=== PATIENT | male | born 2000 | race Caucasian/White ===

== ENCOUNTER 2025-03-11 15:52 | Inpatient (IN) | payer MEDICAID, SELFPAY ==
[2025-03-11] VITALS (12 sets, daily range): BP systolic 105–184; BP diastolic 54–130; PULSE 81–136; RESP 14–29; TEMP 36.2–38.8; O2SAT 88–100; BMI 12.7
--- NOTE | 2025-03-11 16:01 | XR_ITS ---
Examination: AP chest single view Technique: AP portable supine chest single view. Date and time: March 11, 2025 1608 hrs. Indications: Chest pain today Findings: Severe bilateral lung opacity most consistent with pneumonia Normal heart size No pneumothorax. Intact osseous structures Impression: Severe bilateral pneumonia, differential would include miliary active tuberculosis
--- NOTE | 2025-03-11 16:04 | XR_ITS ---
Examination: Foot, right, 3 views Technique: AP, oblique, lateral views foot, 3 views Date and time of exam: March 11, thousand 25, 1604 hrs. Indications: Swelling and pain involving the foot this week Findings: Air in the soft tissues soft tissue defects medial to the navicular and cuneiforms Multiple soft tissue nodular densities primarily dorsal to the metatarsals and digits but also dorsal to the tarsal bones and about the calcaneus, clinical correlation advised. No opaque foreign bodies Suspicious for cortical bone destruction involving the medial navicular and the medial cuneiform Distal phalanges of the second digit are not evident Impression: Multiple soft tissue nodular densities as above Suspicious for early osteomyelitis involving the medial navicular and medial cuneiform, consider MRI foot without contrast follow-up Distal phalanges of the second digit are not evident and may be displaced adjacent to the proximal phalanx third digit, recommend follow-up coned views of the digits
--- NOTE | 2025-03-11 16:09 | PD.EDAMS ---
Altered Mental Status RME/HPI General Chief Complaint: Altered Mental Status Stated Complaint: ALTERED Time Seen by Provider: 03/11/25 15:56 Arrival date/time: 03/11/25 15:52 RME / HPI RME / HPI narrative: 24 year old male with no known medical history presents to the ED BIBA from home for evaluation of altered mental status, confusion, and lethargy. According to the paramedics, the patient was found with a GCS of 13, lethargic, and altered on arrival. His oxygen saturation was 78% on a non-rebreather mask, which was applied by the fire department. The prehospital blood sugar was 50 and he was given 250 mL of D10. Additionally, the patient?s heart rate was 136 and hypotensive with a blood pressure of 80/49. Started on IV lactated Ringer?s. Upon arrival to the ED, the patient reports a history of mouth sores for over one year. 1655: I spoke with the patient's mother and father, who provided additional medical history. They report that the patient developed mouth sores over a year ago, accompanied by significant weight loss since then. The patient is described as being very withdrawn and rarely communicates about his health issues. According to his mother, he hasn't seen a doctor in over 10 years. There is no history of travel or known IV drug use. Today, the patient visited his mother and mentioned that he was unable to climb the stairs due to weakness and shortness of breath, prompting him to call 911. His mother also noted that he last smoked marijuana two days ago, and he believes this may have worsened his shortness of breath. Related Data Previous Rx's ?Medication ?Instructions ?Recorded Hydrocodone/Acetaminophen * (NORCO 1 tab PO BID PRN PAIN #20 tabs 06/27/15 5/325 *) Allergies Allergy/AdvReac Type Severity Reaction Status Date / Time No Known Allergies Allergy Verified 03/11/25 15:58 Review of Systems Review of Systems Systems Reviewed: All systems reviewed, normal except as documented Past Medical History Past Medical History CARDIAC: Negative Congestive Heart Failure RESPIRATORY: Negative Chronic Obstructive Pulmonary Disease (COPD) GENITOURINARY: Negative Renal Disease ENDOCRINE: Negative Diabetes Mellitus Type 1 or Diabetes Mellitus Type 2 Social History SMOKING STATUS: Heavy (> 1 pack/day) ED Exam Narrative Physical exam: GENERAL APPEARANCE: alert and oriented x 4, well-developed; cachectic HEENT: Normocephalic, atraumatic; pupils equal, round, reactive to light; EOMI; mucous membranes dry; eroded periorbital skin, erosions to the tongue and mouth mucosa, destruction of the nasal septum NECK: Supple LUNGS: CTABL; no wheezes, no rales, no rhonchi HEART: Regular rate, regular rhythm; normal S1, S2; no murmurs ABDOMEN: non distended; normal BS; soft, no tenderness, no guarding, no rebound; no masses, no organomegaly, no hernia RECTAL: Area of eroded skin perianally BACK: no CVA tenderness EXTREMITIES: right hand second finger he has thickened skin with erosions, the right foot has eroded skin and multiple nodular masses, edema, and malodor; no edema NEUROLOGIC: awake; alert and oriented x4; cranial nerves II-XII grossly intact PSYCHIATRIC: appropriate mood and affect SKIN: warm, dry; no rashes Course Quality Measures none Orders Category Date Time Status Admit to Inpatient Status Routine Admission 03/12/25 11:59 Active Patient Condition Routine Admission 03/12/25 09:50 Ordered Bedside COVID-19 Antigen Test NOW Care 03/12/25 09:59 Active Remote Sensing Technician NOW Care 03/11/25 16:01 Active EKG (ED ONLY) *Do not use* NOW Care 03/11/25 16:01 Completed Initiate Warming Therapy NOW Care 03/12/25 10:03 Active Intake and Output QSHIFT Care 03/12/25 10:00 Ordered MRI Screening NOW Care 03/12/25 04:44 Active MRI Screening NOW Care 03/12/25 04:46 Completed MRI Screening NOW Care 03/12/25 04:46 Completed MRI Screening NOW Care 03/12/25 04:47 Completed Notify provider NEEDED Care 03/12/25 09:50 Active CA echo doppler complete Stat Exams 03/12/25 09:[address] abdomen pelvis wo con Stat Exams 03/11/25 16:[address] cervical spine wo con Stat Exams 03/11/25 22:[address] chest wo con Stat Exams 03/11/25 22:[address] facial bones wo con Stat Exams 03/11/25 16:[address] head/brain wo con Stat Exams 03/11/25 22:[address] soft tissue neck wo con Stat Exams 03/11/25 16:33 Completed EKG (ED Only) Stat Exams 03/11/25 16:01 Ordered MR foot RT wo con Stat Exams 03/12/25 Ordered MR head/brain wo con Stat Exams 03/12/25 Completed MR orbits face neck wo con Stat Exams 03/12/25 Completed MR pelvis wo con Stat Exams 03/12/25 Ordered XR chest 1V portable Stat Exams 03/11/25 16:01 Completed XR foot comp RT min 3V Stat Exams 03/11/25 16:04 Completed Alcohol, Blood Medical Stat Lab 03/12/25 04:58 Completed B-Type Natriuretic Peptide Stat Lab 03/11/25 16:00 Completed Blood Culture (Lab) Stat Lab 03/11/25 16:05 Results CBC AM DRAW Lab 03/13/25 05:00 Ordered CBC AM DRAW Lab 03/14/25 05:00 Ordered CBC AM DRAW Lab 03/15/25 05:00 Ordered CBC Stat Lab 03/11/25 16:00 Completed Cocci Serology IgM with reflex to IgG [Cocci Serology, Lab 03/12/25 10:51 Results Unk History] Stat Comprehensive Metabolic Panel AM DRAW Lab 03/13/25 05:00 Ordered Comprehensive Metabolic Panel AM DRAW Lab 03/14/25 05:00 Ordered Comprehensive Metabolic Panel AM DRAW Lab 03/15/25 05:00 Ordered Comprehensive Metabolic Panel Stat Lab 03/11/25 16:00 Completed Drug Screen,Urine Stat Lab 03/12/25 12:23 Completed HIV (1&2) Antibody Rapid Stat Lab 03/11/25 16:00 Completed Lactate (Lactic Acid) Stat Lab 03/11/25 16:00 Completed Lactic Acid, 3 HR Stat Lab 03/11/25 19:28 Completed Lipase Stat Lab 03/11/25 16:00 Completed Magnesium AM DRAW Lab 03/13/25 05:00 Ordered Magnesium AM DRAW Lab 03/14/25 05:00 Ordered Magnesium AM DRAW Lab 03/15/25 05:00 Ordered Magnesium Stat Lab 03/11/25 16:00 Completed Partial Thromboplastin Time Stat Lab 03/11/25 16:00 Completed Phosphorous AM DRAW Lab 03/13/25 05:00 Ordered Phosphorous AM DRAW Lab 03/14/25 05:00 Ordered Phosphorous AM DRAW Lab 03/15/25 05:00 Ordered Phosphorous Stat Lab 03/11/25 19:28 Completed Procalcitonin Stat Lab 03/11/25 16:00 Completed Prothrombin Time with INR Stat Lab 03/11/25 16:00 Completed Quantiferon-TB* Stat Lab 03/11/25 16:49 Received Syphilis Stat Lab 03/11/25 16:00 Completed TSH [Thyroid Stimulating Hormone] Stat Lab 03/12/25 04:58 Completed Troponin I Q6H Lab 03/12/25 10:14 Completed Troponin I Q6H Lab 03/12/25 16:00 Ordered Troponin I Q6H Lab 03/12/25 22:00 Ordered Troponin I Stat Lab 03/11/25 16:00 Completed Troponin I Stat Lab 03/11/25 18:55 Completed Urinalysis Stat Lab 03/11/25 22:25 Completed Urine Culture Stat Lab 03/11/25 22:25 Received Acetaminophen Ivpb [Ofirmev Inj] Med 03/11/25 16:47 Discontinued 1,000 mg in 100 ml IV NOW Dextrose 5%-0.45% Ns [D5-1/2Ns] 1,000 ml Med 03/12/25 10:00 Discontinued IV 75 mls/hr Dextrose 50% Syr [D50w Syringe Abboject] Med 03/12/25 08:10 Discontinued 50 ml IVP X1 ONE Heparin Inj Med 03/12/25 10:00 Active 5,000 unit SC Q12HR Lidocaine 2% Viscous [Xylocaine 2% Viscous] Med 03/11/25 16:44 Discontinued 15 ml PO X1 ONE Lidocaine/Prilocaine Cr 5Gm [Emla Cr] Med 03/11/25 17:00 Discontinued See Dose Instructions TOP X1 ONE Ondansetron Inj [Zofran Inj] Med 03/12/25 09:50 Active 4 mg IVP Q6H PRN Ondansetron Inj [Zofran Inj] Med 03/11/25 16:44 Discontinued 4 mg IVP X1 ONE Ondansetron Inj [Zofran Inj] Med 03/11/25 18:35 Discontinued 4 mg IVP X1 ONE Piper/Tazo 3.375 gm Premix [Zosyn] Med 03/12/25 22:00 Active 3.375 gm in 50 ml IV Q8HR Piper/Tazo 3.375 gm Premix [Zosyn] Med 03/11/25 17:21 Discontinued 3.375 gm in 50 ml IV X1 Piper/Tazo 3.375 gm Premix [Zosyn] Med 03/12/25 10:00 Discontinued 3.375 gm in 50 ml IV X1 Sodium Chloride 0.9% 1000 ml [Ns] 1,000 ml Med 03/11/25 16:05 Discontinued IV 999 mls/hr Sodium Chloride 0.9% 1000 ml [Ns] 1,000 ml Med 03/11/25 16:05 Discontinued IV 999 mls/hr Sodium Chloride 0.9% 1000 ml [Ns] 1,000 ml Med 03/11/25 18:35 Discontinued IV 999 mls/hr Vancomycin/Ns 1 gm Ivpb 200 ml Med 03/11/25 16:47 Discontinued IV X1 fentaNYL INJ [Sublimaze Inj] Med 03/11/25 16:44 Discontinued 50 mcg IVP X1 ONE hydrALAZINE INJ [Apresoline Inj] Med 03/11/25 22:03 Discontinued 10 mg IVP X1 ONE Code Status Routine Oth 03/12/25 09:50 Ordered Vital Signs Vital signs: Vital Signs Temperature 101.9 F H 03/11/25 15:58 Pulse Rate 122 H 03/11/25 15:58 Respiratory Rate 24 H 03/11/25 15:58 Blood Pressure 105/54 L 03/11/25 15:58 Pulse Oximetry (%) 95 03/11/25 15:58 Oxygen Delivery Method Oxy Mask 03/11/25 15:58 Oxygen Flow Rate 4.5 03/11/25 15:58 Altered Mental Status MDM Narrative MDM Narrative:: Meena Galeas am scribing for and in the presence of Dr. Gonzlaez. 1800: Patient signed out to Dr. Johnson pending CT reports and final disposition. Patient data External records reviewed:: EMS form Clinical information provided by:: patient, EMS and family Social determinants that could affect healthcare access:: substance use (Marijuana ) Patient has the following chronic illnesses:: No known medical hx reported How is presenting disease/condition affected by chronic disease/condition?: no chronic disease Evaluation data The following diagnostics were reviewed and interpreted by me:: lab results, radiology exam(s) and EKG tracing(s) (Sinus tachcyardia, Q-wave in lead I v5 v6, no acute ischemic changes ) Lab and/or radiology exams considered but not ordered:: None Interpretation Summary: Ordering Physician: Gwendolyn Gonzalez MD Date of Service: 03/11/25 Procedure(s): XR chest 1V portable Accession Number(s): [id number] cc: Meño Garrett MD; Gwendolyn Gonzalez MD~ Examination: AP chest single view Technique: AP portable supine chest single view. Date and time: March 11, 2025 1608 hrs. Indications: Chest pain today Findings: Severe bilateral lung opacity most consistent with pneumonia Normal heart size No pneumothorax. Intact osseous structures Impression: Severe bilateral pneumonia, differential would include miliary active tuberculosis Dictated By: Meño Garrett MD Signed By: <Electronically signed by Meño Garrett MD in OV> 03/11/25 1625 Ordering Physician: Gwendolyn Gonzalez MD Date of Service: 03/11/25 Procedure(s): XR foot comp RT min 3V Accession Number(s): [id number] cc: Meño Garrett MD; Gwendolyn Gonzalez MD~ Examination: Foot, right, 3 views Technique: AP, oblique, lateral views foot, 3 views Date and time of exam: March 11 25, 1604 hrs. Indications: Swelling and pain involving the foot this week Findings: Air in the soft tissues soft tissue defects medial to the navicular and cuneiforms Multiple soft tissue nodular densities primarily dorsal to the metatarsals and digits but also dorsal to the tarsal bones and about the calcaneus, clinical correlation advised. No opaque foreign bodies Suspicious for cortical bone destruction involving the medial navicular and the medial cuneiform Distal phalanges of the second digit are not evident Impression: Multiple soft tissue nodular densities as above Suspicious for early osteomyelitis involving the medial navicular and medial cuneiform, consider MRI foot without contrast follow-up Distal phalanges of the second digit are not evident and may be displaced adjacent to the proximal phalanx third digit, recommend follow-up coned views of the digits Dictated By: Meño Garrett MD Signed By: <Electronically signed by Meño Garrett MD in OV> 03/11/25 9039 Medications / Prescriptions Medications or Prescriptions considered but not ordered:: None Medication administrations:: Medication Administration History Atorvastatin Calcium (Atorvastatin Calcium 20 Mg Tablet) 40 mg PO HS ZULEYKA Stop: 04/11/25 20:59 Heparin Sodium (Porcine) (Heparin Sod Inj 5000 Unit/Ml Vial) 5,000 unit SC Q12HR ZULEYKA Stop: 03/26/25 09:59 Last Admin: 03/12/25 10:44 Dose: Not Given Documented By: DB Non-Admin Reason: Contraindicated Comments: OK TO HOLD Piperacillin/Tazobactam/Dextrose (Zosyn) 3.375 gm in 50 mls @ 12.5 mls/hr IV Q8HR ZULEYKA Stop: 03/19/25 21:59 Albumin Human (Albuminar-25 Ivpb) 25 gm in 100 mls @ 100 mls/hr IV Q6HR ZULEYKA Stop: 03/15/25 20:49 Dextrose/Sodium Chloride (D5-1/2ns) 1,000 mls @ 40 mls/hr IV .Q24H ONE Stop: 03/13/25 16:16 Ondansetron HCl (Ondansetron Inj 2 Mg/Ml Inj 2 Ml) 4 mg IVP Q6H PRN; Protocol PRN Reason: NAUSEA OR VOMITING Stop: 04/11/25 09:49 Thiamine HCl (Thiamine Inj 100 Mg/Ml Vial 2 Ml) 100 mg IVP QDAY ZULEYKA; Protocol Stop: 04/11/25 15:59 Voriconazole (Voriconazole 200 Mg Tablet) 200 mg PO BID ZULEYKA Stop: 03/19/25 20:59 Discontinued Medications Dextrose (Dextrose 50%-Water Inj 50 Ml Syringe) 50 ml IVP X1 ONE Stop: 03/12/25 08:11 Last Admin: 03/12/25 08:23 Dose: 50 ml Documented By: DB Fentanyl Citrate (Fentanyl Cit Inj 50 Mcg/Ml Amp 2ml) 50 mcg IVP X1 ONE Stop: 03/11/25 16:45 Last Admin: 03/11/25 18:30 Dose: Not Given Documented By: GM Non-Admin Reason: Contraindicated Hydralazine HCl (Hydralazine Inj 20 Mg/Ml Vial) 10 mg IVP X1 ONE Stop: 03/11/25 22:04 Last Admin: 03/11/25 22:30 Dose: 10 mg Documented By: SANTChris Sodium Chloride (Ns) 1,000 mls @ 999 mls/hr IV .Q1H1M ONE Stop: 03/11/25 17:05 Last Infusion: 03/11/25 17:38 Dose: Infused Documented By: Admin: 03/11/25 16:30 Dose: 999 mls/hr Documented By: Sodium Chloride (Ns) 1,000 mls @ 999 mls/hr IV .Q1H1M ONE Stop: 03/11/25 17:05 Last Infusion: 03/11/25 18:05 Dose: Infused Documented By: Admin: 03/11/25 16:41 Dose: 999 mls/hr Documented By: Acetaminophen (Ofirmev Inj) 1,000 mg in 100 mls @ 250 mls/hr IV NOW ONE Stop: 03/11/25 17:10 Last Infusion: 03/11/25 18:09 Dose: Infused Documented By: Admin: 03/11/25 17:42 Dose: 250 mls/hr Documented By: Vancomycin/Sodium Chloride (Vancomycin/Ns 1 Gm Ivpb) 200 mls @ 120 mls/hr IV X1 ONE Stop: 03/11/25 18:26 Last Infusion: 03/11/25 19:45 Dose: Infused Documented By: [email or web address] Admin: 03/11/25 18:00 Dose: 120 mls/hr Documented By: Piperacillin/Tazobactam/Dextrose (Zosyn) 3.375 gm in 50 mls @ 100 mls/hr IV X1 ONE Stop: 03/11/25 17:50 Last Infusion: 03/11/25 20:05 Dose: Infused Documented By: [email or web address] Admin: 03/11/25 19:32 Dose: 100 mls/hr Documented By: [email or web address] Sodium Chloride (Ns) 1,000 mls @ 999 mls/hr IV .Q1H1M ONE Stop: 03/11/25 19:35 Last Infusion: 03/11/25 20:05 Dose: Infused Documented By: [email or web address] Admin: 03/11/25 18:43 Dose: 999 mls/hr Documented By: Dextrose/Sodium Chloride (D5-1/2ns) 1,000 mls @ 75 mls/hr IV .[id number] [facility] Stop: 04/11/25 09:59 Last Admin: 03/12/25 10:37 Dose: 75 mls/hr Documented By: LANCE Piperacillin/Tazobactam/Dextrose (Zosyn) 3.375 gm in 50 mls @ 100 mls/hr IV X1 ONE Stop: 03/12/25 10:29 Last Infusion: 03/12/25 11:04 Dose: Infused Documented By: Admin: 03/12/25 10:37 Dose: 100 mls/hr Documented By: LANCE Albumin Human (Albuminar-25 Ivpb) 25 gm in 100 mls @ 100 mls/hr IV X1 ONE Stop: 03/12/25 14:50 Magnesium Sulfate (Magnesium Sulfate Ivpb) 2 gm in 50 mls @ 25 mls/hr IV X1 ONE Stop: 03/12/25 15:51 Dextrose/Sodium Chloride (D5-1/2ns) 1,000 mls @ 40 mls/hr IV .Q24H [facility] Stop: 04/11/25 15:56 Lidocaine HCl (Lidocaine Viscous 2% 15 Ml Udc) 15 ml PO X1 ONE Stop: 03/11/25 16:45 Last Admin: 03/11/25 17:44 Dose: 15 ml Documented By: FRANCISCO Comments: APPLIED TOPICALLY ON PT'S MOUTH AND FACE Lidocaine/Prilocaine (Lidocaine/Prilocaine Cr 5gm 5 Gm Tube) 0 gm TOP X1 ONE Stop: 03/11/25 17:01 Last Admin: 03/11/25 17:44 Dose: 5 gm Documented By: FRANCISCO Comments: APPLIED TOPICALLY TO PT'S R LEG, R HAND AND RECTUM AND BUTTOCKS. Ondansetron HCl (Ondansetron Inj 2 Mg/Ml Inj 2 Ml) 4 mg IVP X1 ONE; Protocol Stop: 03/11/25 16:45 Last Admin: 03/11/25 17:42 Dose: 4 mg Documented By: GM Ondansetron HCl (Ondansetron Inj 2 Mg/Ml Inj 2 Ml) 4 mg IVP X1 ONE; Protocol Stop: 03/11/25 18:36 Last Admin: 03/11/25 20:06 Dose: Not Given Documented By: [email or web address] Non-Admin Reason: Patient Refused See above Consultations Consultation(s) initiated? (list below): No Diagnosis Most likely diagnosis given after review of the tests above:: Sepsis Admission Indicated Admission indicated?: not indicated Explain why admission is indicated or not indicated:: Signed out pending final disposition Admission Request Was there a request for admission?: No Disposition Plan Disposition Plan: other (specify) (Signed out pending final disposition ) Discharge Plan Plan Patient Disposition: Admit Acute Care w/in Hospital Problem List Clinical Impression: Sepsis, Failure to thrive, Skin ulcer of multiple sites, Cellulitis, UTI (urinary tract infection), Pneumonia, Elevated troponin, LFT elevation, Hypercalcemia, Osteomyelitis of right foot, Infected dental caries, Perianal abscess, Oropharyngeal mass, Maxillary fracture, Basal ganglia infarction MD Attestation MD Attestation I took over the care from previous shift physician, Dr. GONZALEZ, at 6 PM on 03/11/2025. See previous notes for complete H & P and ED course. I reviewed all diagnostic test results. Diagnoses include: Failure to thrive Sepsis Multiple skin ulcers with cellulitis UTI Pneumonia Elevated troponin LFT elevation Hypercalcemia Right foot osteomyelitis Infected dental caries Perianal abscess Oropharyngeal mass Maxillary erosions and fractures Ascites Basal ganglia infarction 2018: I discussed the case with our hospitalist. About the presentation and exam and diagnostics and treatments here. And need of further care in the hospital. Declined, recommended transfer to another facility with ENT service. 2210: I discussed the case with [facility]. About the presentation and exam and diagnostics and treatments there. And possible need of further care in their hospital. Recommended outpatient ENT follow-up. 2342: I discussed the case with [facility]. About the presentation and exam and diagnostics and treatments there. And possible need of further care in their hospital. Recommended outpatient ENT follow-up. MRI imaging studies ordered. At 6 AM on 03/12/2025, the care of the patient was transferred to Dr. GONZALEZ. Remi Johnson MD
[2025-03-11] MEDS: SODIUM CHLORIDE 0.9% 1000 ML 1,000 ML 999 ML IV ×3 (16:30→18:43)
[2025-03-11 16:31] LABS: Basophils # (Auto) 0.1 Thou/mm3 (0.0-0.2); Basophils % (Auto) 0 % (0-2.5); Eosinophils # (Auto) 0.0 Thou/mm3 (0.0-0.5); Eosinophils % (Auto) 0 % (0-10); Hematocrit 27.8 % (41.0-53.0); Hemoglobin 8.9 g/dL (13.5-16.0); Immature Granulocytes Auto 0.26 Thou/mm3 (0.00-0.00); Lymphocytes # (Auto) 1.1 Thou/mm3 (1.0-4.8); Lymphocytes % (Auto) 4 % (10-50); Mean Corpuscular HGB Conc 32.0 g/dl (31.0-37.0); Mean Corpuscular Hemoglobin 25.4 pg (25.0-35.0); Mean Corpuscular Volume 79 fL (80-100); Monocytes # (Auto) 0.2 Thou/mm3 (0.0-0.8); Monocytes % (Auto) 1 % (0-12); Neutrophils # (Auto) 22.8 Thou/mm3 (1.8-7.7); Neutrophils % (Auto) 93 % (37-80); Nucleated Red Blood Cell # 0.00 Thou/mm3 (0.00-0.00); Nucleated Red Blood Cell % 0 /100 WBC (0); Platelet Count 381 Thou/mm3 (140-440); RDW Standard Deviation 52.1 fL (35.1-43.9); Red Blood Count 3.51 Miln/mm3 (4.50-5.90); White Blood Count 24.4 Thou/mm3 (3.8-10.6)
--- NOTE | 2025-03-11 16:33 | XR_ITS ---
Examination: CT soft tissue neck, without intravenous contrast. 2-D coronal reconstructions. 2-D sagittal reconstructions. Date and time of exam :March 11, 2025, 1706 hrs. Indications: Diagnosis tongue lesion CTDI: vol (mGy):11.8 DLP: (mGycm):360. Technique: 1.25 mm axial sections of the neck of the obtained. Coronal and sagittal reconstructions have been obtained. Low dose protocols were performed. One or more of the following dose reduction techniques were used; automated exposure control, adjustment of the mA and/or KV according to patient size, use of iterative reconstruction technique. Findings: The optic globes exhibit symmetry. Significant chronic mucosal disease in the maxillary antra and ethmoid air cells. No tonsillar mass. This is a noncontrast study which severely limits assessment for any oropharyngeal or masses. There are subtle low densities in the anterior tongue, axial image 27, the largest measures 9 mm No laryngeal mass Severe cavitary parenchymal disease in the lingular segment wright Impression: Severely limited study without intravenous contrast, recommend MRI soft tissue neck pain post contrast to best assess for oropharyngeal mass Subtle low density areas in the anterior tongue There is severe cavitary parenchymal disease throughout the visualized lungs, differential includes active tuberculosis
--- NOTE | 2025-03-11 16:33 | XR_ITS ---
Examination: CT maxillofacial, without intravenous contrast. 2-D sagittal reconstructions. 3-D reconstructions. Date and time of exam:March 11, 2025, 1706 hrs. Indications: Diagnosis nasal erosion CTDI: vol (mGy):13.0. DLP: (mGycm):278. Technique: Multiple axial images of maxillofacial region, 3.0 mm slice thickness. 2-D sagittal and coronal reconstructions. 3-D reconstructions. Low dose protocols were performed. One or more of the following dose reduction techniques were used; automated exposure control, adjustment of the mA and/or KV according to patient size, use of iterative reconstruction technique. Findings: The optic globes are intact. Chronic mucosal disease significant in the maxillary antra, milder chronic mucosal disease ethmoid air cells Frontal bone intact Orbital rims intact Nasal bones and nasal septum are intact There is mild erosion involving the anterior maxilla, axial image 60 The pterygoid plates are intact Axial image 60 suspicious for nondisplaced fractures of the anterior and lateral right maxillary antrum Incisor mandibular dental caries Impression: Chronic maxillary antral ethmoid sinus disease. Mild erosion involving the anterior maxilla, clinical correlation advised. Suspicious for nondisplaced fractures anterior and lateral right maxillary antrum, clinical correlation advised Incisor mandibular dental caries
[2025-03-11 16:38] LABS: INR 1.5 (0.9-1.3); Partial Thromboplastin Time 37.9 Seconds (22.0-36.0); Prothrombin Time 16.2 Seconds (9.0-12.2)
[2025-03-11 16:39] LABS: B-Type Natriuretic Peptide 97 pg/mL (0-100); Lactate (Lactic Acid) 8.6 mMol/L (0.4-2.0)
--- NOTE | 2025-03-11 16:39 | XR_ITS ---
Examination: CT abdomen and pelvis without contrast. Coronal 3-D reconstructions. Sagittal 2-D reconstructions. Date and time of exam: March 11, 2025, 1715 hrs. Indications: Rectal lesion CTDI: vol (mGy): 7.31. DLP: (mGycm): 406. Technique: Axial images of the abdomen have been obtained, 3 mm slice thickness Intravenous contrast material has not been administered. Low dose protocols were performed. One or more of the following dose reduction techniques were used; automated exposure control, adjustment of the mA and/or KV according to patient size, use of iterative reconstruction technique. Findings: Severe miliary nodular pattern in the lung wright Hepatomegaly 19 cm prominent fatty infiltration throughout the liver The patient is extremely thin and which in this case with a noncontrast CT severely limits assessment There is no hydronephrosis Aorta is not enlarged There is no bowel obstruction. There is free fluid in the abdomen especially the pelvis The bladder is thick-walled measuring up to 5 mm Findings are suspicious for 12 x 6 mm left perianal abscess on this noncontrast study Impression: Severe miliary nodular pattern in the lung wright The combination of the patient's emaciation and noncontrast examination severely limits interpretation Hepatomegaly, 19 exam with fatty infiltration throughout the liver Ascites Cystitis pattern Suspicious for small left perianal abscess
--- NOTE | 2025-03-11 16:45 | PC.NURSE ---
THIS RN ATTEMPTED TO PERFORM IN AND OUT CATHETER TO OBTAIN URINE SAMPLE FROM PT; UNSUCCESSFUL. MADE AWARE. PT EDUCATED TO USE URINAL TO OBTAIN URINE. PT'S PARENTS AT BEDSIDE & EDUCATE ON URINAL USE WELL.
[2025-03-11 16:49] LABS: Alanine Aminotransferase 36 U/L (10-49); Albumin, Serum 1.6 gm/dL (3.5-5.0); Albumin/Globulin Ratio 0.4 (1.2-2.2); Alkaline Phosphatase 212 U/L (46-116); Anion Gap 14 (7-16); Aspartate Amino Transferase 107 U/L (0-34); BUN/Creatinine Ratio 22 Ratio (12-20); Bilirubin,Total 0.3 mg/dL (0.3-1.2); Blood Urea Nitrogen 22 mg/dL (9-23); Calcium 9.5 mg/dL (8.3-10.6); Calcium (Corrected) 11.4 mg/dL (8.5-10.1); Carbon Dioxide 21.9 mMol/L (20.0-31.0); Chloride 96 mMol/L (98-107); Creatinine (Component) 1.0 mg/dL (0.6-1.3); Estimated Creatinine Clearance 69.8 mL/min (>60); Globulin 3.6 gm/dL (2.3-3.5); Glucose 162 mg/dL (74-106); Lipase 12 U/L (12-53); Magnesium 1.6 mg/dL (1.6-2.6); Osmolality,Calculated 271 (275-295); Potassium 3.8 mMol/L (3.4-5.1); Procalcitonin 19.18 ng/ml (0.0-0.49); Sodium 132 mMol/L (136-145); Total Protein 5.2 gm/dL (5.7-8.2); eGFR > 60 See Note
[2025-03-11 16:50] LABS: Troponin I 0.220 ng/mL (0.0-0.045)
[2025-03-11 16:58] LABS: Syphilis Nonreactive (Nonreactive)
[2025-03-11 17:38] LABS: HIV (1&2) Antibody Rapid Non-Reactive
[2025-03-11] MEDS: ACETAMINOPHEN IVPB 1,000 MG/100 ML VIAL 250 MG IV (17:42)
[2025-03-11] MEDS: ONDANSETRON INJ 2 MG/ML INJ 2 ML 4 MG IVP (17:42)
[2025-03-11] MEDS: LIDOCAINE VISCOUS 2% 15 ML UDC PO (17:44)
[2025-03-11] MEDS: LIDOCAINE/PRILOCAINE CR 5GM 5 GM TUBE TOP (17:44)
[2025-03-11] MEDS: VANCOMYCIN/NS 1 GM IVPB 200 ML IV (18:00)
--- NOTE | 2025-03-11 18:37 | PD.EDADDENDU ---
Emergency Room Addendum <Arabella Garcia - Last Filed: 03/12/25 04:34> Addendum Narrative: I took over the care from previous shift physician at 6 PM on 03/11/2025. See previous notes for complete H & P and ED course. I reviewed all diagnostic test results. My interpretation of the EKG is My interpretation of the chest x-ray is Severe bilateral pneumonia, differential would include miliary active tuberculosis. My interpretation of the foot x-ray is multiple soft tissue nodular densities as above. Suspicious for early osteomyelitis involving the medial navicular and medial cuneiform, consider MRI foot without contrast follow-up. Distal phalanges of the second digit are not evident and may be displaced adjacent to the proximal phalanx third digit, recommend follow-up coned views of the digits. My review of the soft tissue neck CT report is Severely limited study without intravenous contrast, recommend MRI soft tissue neck pain post contrast to best assess for oropharyngeal mass. Subtle low density areas in the anterior tongue. There is severe cavitary parenchymal disease throughout the visualized lungs, differential includes active tuberculosis. My review of the face CT report is Chronic maxillary antral ethmoid sinus disease. Mild erosion involving the anterior maxilla, clinical correlation advised. Suspicious for nondisplaced fractures anterior and lateral right maxillary antrum, clinical correlation advised. Incisor mandibular dental caries. My review of the abdomen/pelvis CT report is Severe miliary nodular pattern in the lung wright. The combination of the patient's emaciation and noncontrast examination severely limits interpretation. Hepatomegaly, 19 exam with fatty infiltration throughout the liver. Ascites. Cystitis pattern. Suspicious for small left perianal abscess. My review of the Chest CT report is evaluation of the sternum and some of the ribs is limited due to motion artifacts. There are cavitating lesions (the largest measuring 5 cm) in bilateral lung apices with adjacent scarring, airspace consolidation, bronchiectasis and infiltrates. There are extensive changes of airspace consolidation, cavitation, centrilobular nodules and bronchiectasis in bilateral lower lobes and right middle lobe. Findings suspicious for infectious etiology such as atypical mycobacterial infection or fungal infection. There is a small right pleural effusion. No evidence of pneumothorax. The main pulmonary arteries are dilated with the pulmonary trunk measuring 3.5 cm, which may represent pulmonary arterial hypertension. There is no pericardial effusion. Secretions are seen in the lower trachea. There is no evidence of acute fracture to the extent visualized. Diffuse fatty infiltration of the liver is noted. Please note that evaluation of soft tissue/vascular structures is limited due to absence of IV contrast. My review of the Head/Brain CT report is No evidence of intracranial hemorrhage, mass effect or midline shift. If there are persistent clinical symptoms or additional clinical concerns consider an MRI. My review of the C-Spine CT report is there is no evidence of acute fracture or traumatic subluxation. There is reversal of the normal lordotic curvature of the cervical spine. There is a developmental defect in the posterior arch of the C1 vertebra. The prevertebral soft tissues are unremarkable. Cavitating lesions are seen at the lung apices bilaterally with associated scarring and infiltrates. Blood tests and urine tests Diagnoses include: Treatment here included: Apresoline 110 mg Zofran 4 mg, IVF. 2018: I discussed the case with our hospitalist. About the presentation and exam and diagnostics and treatments here. And need of further care in the hospital. Will not accept the patient. 2210: I discussed the case with [facility]. About the presentation and exam and diagnostics and treatments there. And need of further care in their hospital. Will accept the patient. 2342: I discussed the case with [facility]. About the presentation and exam and diagnostics and treatments there. And need of further care in their hospital. Will not accept the patient. 0600: Pending MRI. Signed out to Dr. Gonzalez at 6 AM. Remi Johnson MD <Remi Johnson MD - Last Filed: 03/12/25 04:44> Addendum Narrative: I took over the care from previous shift physician, Dr. GONZALEZ, at 6 PM on 03/11/2025. See previous notes for complete H & P and ED course. I reviewed all diagnostic test results. Diagnoses include: Failure to thrive Sepsis Multiple skin ulcers with cellulitis UTI Pneumonia Elevated troponin LFT elevation Hypercalcemia Right foot osteomyelitis Infected dental caries Perianal abscess Oropharyngeal mass Maxillary erosions and fractures Ascites Basal ganglia infarction 2018: I discussed the case with our hospitalist. About the presentation and exam and diagnostics and treatments here. And need of further care in the hospital. Declined, recommended transfer to another facility with ENT service. 2210: I discussed the case with [facility]. About the presentation and exam and diagnostics and treatments there. And possible need of further care in their hospital. Recommended outpatient ENT follow-up. 2342: I discussed the case with [facility]. About the presentation and exam and diagnostics and treatments there. And possible need of further care in their hospital. Recommended outpatient ENT follow-up. MRI imaging studies ordered. At 6 AM on 03/12/2025, the care of the patient was transferred to Dr. GONZALEZ. Remi Johnson MD
--- NOTE | 2025-03-11 18:40 | PC.NURSE ---
THIS RN CLARIFIED WITH DR. MACDONALD IF OK TO GIVE 4L BOLUS OF FLUIDS FOR PT. PT ALREADY 1L OF LR FROM EMS AND 2L OF NS BOLUS PRIOR HERE AT [facility]. PER DR. MACDONALD, OK TO GIVE PT 4TH BOLUS OF IV FLUIDS NS.
[2025-03-11 19:17] LABS: Reflex Lactate? Y
[2025-03-11 19:19] LABS: Troponin I 0.242 ng/mL (0.0-0.045)
[2025-03-11] MEDS: PIPER/TAZO 3.375 GM PREMIX 3.375 GM/50 ML BAG IV (19:32)
[2025-03-11 19:38] LABS: Lactic Acid, 3 HR 2.1 mMol/L (0.4-2.0)
--- NOTE | 2025-03-11 20:31 | PD.RESEVENT ---
Documentation for date of: 03/11/25 Event Note Event Note: This is a 24-year-old male with reported history of autism disorder brought in by ambulance for failure to thrive. History is obtained from both parents at bedside and from patient. Evidently, he has a suspected history of autism, never been formally diagnosed. Parents are , currently lives with his father at home. Patient mainly stays at home, no formal or current relationships. Reportedly, he has been gradually declining over the last year, but had consistently refused health care when suggested by parents. This morning, he was sitting on the porch and was complaining of feeling lightheaded and wanting to pass out, after which parents had called EMS. Private discussion with patient at bedside revealed alert and oriented male x 4 but verbal response is limited likely secondary to oropharyngeal abscess. He reports he feels safe at home, denied any signs of adult neglect or abuse. He states he is able to walk, and care for himself and mostly independent. States he has been having trouble swallowing over the last 2 months secondary to dental caries and oral ulcers. On exam, he is severely cachectic with a BMI of 12.7, diffuse muscle wasting and decreased tone throughout. He has multiple skin lesions including large soft tissue infection of the right foot, sacral ulcer, right upper extremity. He has severe dental caries, and large nasal septal lesion and possible ulceration. Skin exam also revealed multiple old lesions throughout the entire skin. Lung exam revealed coarse breath sound bilaterally and stridor noted. Vitals on patients eval revealed T101.9, BP 105/54, HR 122, RR 24. He is satting 95% on 4.5 L OxyMask although reports feeling short of breath and difficulty breathing, and feels like his neck is tight. CBC revealed WBC 24.4, Hgb 8.9, PLT 381. Coag panel revealed PT 16.2, INR 1.5, PTT 37.9. CHEM panel remarkable for sodium 132, chloride 96, lactic acid 8.6 then 2.1 after fluids, AST 107, ALT 36, ALP 212, troponin 0.220, then 0.242, BNP 97, ALBUMIN 1.6, PRO-MILKA 19.18, normal lipase of 12. Chest x-ray revealed severe bilateral pneumonia, suspicious for miliary active tuberculosis. Right foot x-ray showed multiple soft tissue nodular density, early osteomyelitis involving medial navicular and medial cuneiform, possible displaced fracture of distal phalanges of the second digit. Face CT revealed chronic maxillary antral ethmoid sinus disease, mild erosion involving the anterior maxillary, nondisplaced fracture of the anterior and lateral right maxillary antrum, and incisor, mandibular dental caries. Neck soft tissue CT study was severely limited with IV contrast but showed severe cavitary parenchymal disease throughout the visualized lung, subtle low-density area in the anterior tongue, recommended MRI to assess for oropharyngeal mass. Abdominal CT revealed severe miliary nodule pattern in lung wright, hepatomegaly, ascites, cystitis pattern, and small left perianal abscess. Given the above findings, we had recommended to attempt transfer to higher level of care for this 24-year-old male with severe cachexia, multi-focal soft tissue infections, possible airway obstruction from oropharyngeal mass, and evidence of sepsis. The patient's clinical instability, complex infectious and airway issues, and urgent need for multidisciplinary intervention, including ENT evaluation for airway compromise 2/2 neck mass and maxillary fractures, general surgery for wound/abscess and osteomyelitis management, and MRI for further assessment of neck pathologies. In the mean time, recommended broad-spectrum antibiotics along with careful iv hydration, along with electrolyte repletion, and monitoring for refeeding syndrome. Also recommend consulting adult protective services to r/o adult abuse/neglect and evaluation of patient's medical decision making capabilities in light of patient's long due need for urgent medical care. Case was discussed with attending physician, Dr. Ledezma. Omid Vela, DO PGY II This document was transcribed using voice recognition technology. Minor inaccuracies may be present.
[2025-03-11] MEDS: hydrALAZINE INJ 20 MG/ML VIAL 10 MG IVP (22:30)
--- NOTE | 2025-03-11 22:39 | XR_ITS ---
Examination: CT brain head without contrast. 2-D sagittal coronal reconstructions Date and time of exam:March 12, 2025 0304 hours INDICATIONS: Frequent falls this week with injury to the head, followed by altered mental status. CTDI: vol (mGy):51.1 DLP: (mGycm):1005 Technique: Multiple CT axial sections of the brain have been obtained, 5 mm slice thickness. Contrast has not been administered. 2-D sagittal, coronal reconstructions have been obtained Low dose protocols were performed. One or more of the following dose reduction techniques were used; automated exposure control, adjustment of the mA and/or KV according to patient size, use of iterative reconstruction technique. Findings: No significant ventricular enlargement. Small old appearing infarct right cerebellar hemisphere image 29 Intra-axial or extra-axial hemorrhage density is not seen. No mass effect or midline shift Basal cisterns are not remarkable. Fourth ventricle is midline. Cranial vault intact. Impression: Negative for acute hemorrhage, mass effect or midline shift Please see the brain MRI report March 12, 2025
--- NOTE | 2025-03-11 22:39 | XR_ITS ---
Examination: CT cervical spine without contrast 2-D sagittal reconstructions 2-D coronal reconstructions 3-D reconstructions. Exam date and time:March 12, 2025 0304 hours INDICATIONS: Patient fell several times this week with injury to the neck, neck pain CTDI:vol (mGy) 13.8 DLP: (mGycm) 318 Technique: Multiple 2 mm axial sections of the cervical spine have been obtained. The coronal and sagittal reconstructions have been obtained. 3-D reconstructions have been obtained. Low dose protocols were performed. One or more of the following dose reduction techniques were used; automated exposure control, adjustment of the mA and/or KV according to patient size, use of iterative reconstruction technique. Findings: Axial sections demonstrate intact base of the skull. C1 exhibit satisfactory relationship to the odontoid. No acute cervical vertebral body fracture seen. Alignment posterior spinous processes satisfactory. Impression: No acute cervical fracture. Please see the CT chest report
--- NOTE | 2025-03-11 22:39 | XR_ITS ---
Examination: CT chest, without intravenous contrast. Sagittal and coronal 2-D reconstructions. Exam date and time: March 12, 2025 0309 hours INDICATIONS: Difficulty breathing this week CTDI:vol (mGy) 11.3 DLP: (mGycm) 460 Technique: Multiple 3.0 mm axial sections of the chest to been obtained. Bone and lung density settings are obtained. Sagittal and coronal 2-D reconstructions have been obtained. Low dose protocols were performed. One or more of the following dose reduction techniques were used; automated exposure control, adjustment of the mA and/or KV according to patient size, use of iterative reconstruction technique. Findings: No thoracic aortic aneurysm dilatation Pulmonary artery segments are not enlarged. Severe cavitary bilateral lung opacity including miliary nodular pattern Please see the CT abdomen pelvis report Significant osteopenia IMPRESSION: Severe cavitary lung opacities with miliary nodular pattern Highest on the differential list is infectious processes including active tuberculosis, clinical correlation advised
[2025-03-11 22:45] LABS: Collection Type, Urine Clean Catch
[2025-03-11 23:02] LABS: Phosphorous 4.1 mg/dL (2.4-5.1)
--- NOTE | 2025-03-11 23:15 | PC.NURSE ---
21:47- Initiated transfer with [facility], requesting ENT due to Maxillary fractures and oropharyngeal mass, Deirdre from Transfer center responded after clinicals were sent and they stated ENT Marcus Weems had review case and did state that they would be able to do an out patient follow up. If they admitting team decided to admit they would follow up and would recommend seeing him in 1-2 weeks to get the referral in place.
[2025-03-11 23:17] LABS: Amorphous Crystals,Urine Present (Absent); Hyaline Casts,Urine 2 /hpf (0-1); RBC,Urine 1 /hpf (0-3); Squamous Epithelial Cell,Urine < 1 /hpf (0-5); WBC,Urine 27 /hpf (0-5)
[2025-03-11 23:25] LABS: Bilirubin,Urine Negative (Negative); Blood,Urine 1+ (Negative); Color,Urine Yellow (Lt Yel-Yel); Glucose, Urine Negative (Negative); Ketones,Urine Negative (Negative); Leukocyte Esterase,Urine Positive (Negative); Nitrite,Urine Negative (Negative); PH,Urine 6.0 (5.0-7.0); Protein,Urine 1+ (Neg - Trace); Specific Gravity,Urine 1.034 (1.001-1.035); Urobilinogen,Urine Negative mg/dL (0.0-1.0)
[2025-03-11 23:27] LABS: Clarity,Urine Turbid (Clear/Hazy)
[2025-03-12] VITALS (41 sets, daily range): BP systolic 75–182; BP diastolic 59–133; PULSE 78–139; RESP 12–49; TEMP 34.4–36.9; O2SAT 78–100
--- NOTE | 2025-03-12 | XR_ITS ---
Examination: MRI brain without intravenous contrast. Date and time of exam: March 12, 2025, 0652 hrs. Indications: Onset altered mental status lethargy confusion beginning yesterday Technique: Multiple axial and sagittal images of the brain obtained. Siemens high-resolution 1.5 Vicky short bore scanners utilized. Sagittal sections, T1-weighted, TR 500, TE 14, are performed. Axial sections proton-density and T2-weighted have been obtained. Inversion recovery axial images, TR 9, 260, TE 111, TI 2500. Diffusion weighted images, axial sections, TR 4800, TE 128, B value 1000 Axial sections, ADC map, TR 4800, TE 128 Findings: Enlargement of the sella turcica is not present. The optic chiasm and infundibular are not remarkable. Prepontine and interpeduncular cisterns are not enlarged. There is no localized enlargement of the medulla or galina. Fourth ventricle and cerebellar tonsils appear normal in position. No subacute area of hemorrhage density is seen. Mass in the cerebellopontine angle region is not evident. Globes symmetrical. Orbital musculature including medial lateral rectus muscles do not exhibit abnormality. Diffusion-weighted images demonstrate multiple embolic foci of restricted diffusion, both cerebellar hemispheres, right occipital lobe, left basal ganglia, right and left parietal lobes, left caudate nucleus, with signal deficit on the ADC map Increased white matter signal evident Mass effect upon the ventricular system is not identified. Impression: Multiple embolic type acute infarcts, both cerebellar hemispheres, right occipital lobe, left basal ganglia including the caudate nucleus, right and left parietal lobes
--- NOTE | 2025-03-12 | XR_ITS ---
Examination: MRI of orbits face neck, without contrast Date and time of exam: March 12, 2025, 0652 hrs. Indications: Mouth sores and weight loss beginning last month Technique: Multiple axial sagittal and coronal images of the orbits face neck have been obtained with the Siemens high-resolution 1.5 Vicky MRI scanner. Images obtained include T2-weighted fat-suppressed sagittal sections, TR 3500, TE 46, T2 weighted coronal fat suppressed images, TR 3050, TE 84, T2-weighted transverse fat suppressed images, TR 3260, TE 63, proton density transverse images, TR 4720 TE 46, and T1 weighted coronal images, TR 560, TE 13. Findings: The images are degraded by patient motion No oropharyngeal mass is noted on this noncontrast study Images of the tongue are severely degraded by patient motion There is no prevertebral soft tissue prominence There is edema internal to the mandibular angles bilaterally The epiglottis is mildly thickened. There is no prevertebral soft tissue prominence Satisfactory alignment cervical vertebral bodies The cervical cord is unremarkable Impression: The images are degraded by continual patient motion No oropharyngeal mass is noted on this study. There is mild thickening of the epiglottis Consider shorter scan time CT scan soft tissue neck post intravenous contrast follow-up
--- NOTE | 2025-03-12 02:38 | PC.NURSE ---
[facility] contacted for transfer they stated they would recommend out patient ENT. Transfer center Spoke to MD MACDONALD
--- NOTE | 2025-03-12 03:36 | PRELIM_ITS ---
PRELIM ADDENDUM There are subtle hypodensities in the left basal ganglia, anterior limb of left internal capsule and left parietooccipital junction, suspicious for infarcts of indeterminate age (axial images 18-21/43). There is a wedge-shaped chronic infarct in the right cerebellum posteriorly. Suggest clinical correlation and further assess with MRI if clinically indicated. These additional findings were discussed with Dr. Johnson by Dr. Loyola at 03:47 AM. Discussion Details: Results Discussed With : Dr. Johnson at 03:47 AM 03/12/2025 Report Electronically Signed By: Sony Loyola 03/12/2025 3:50:31 AM [EST] ORIGINAL PRELIM REPORT: CT scan of the head without intravenous contrast (axial sections with sagittal and coronal reformats). March 12, 2025 0304 hours Clinical History: AMS Comparison: No prior study is available for comparison. Findings: No evidence of intracranial hemorrhage, mass effect or midline shift. No definitive wedge shaped acute infarcts are detected. Please note that subtle early infarcts are better assessed using diffusion weighted MR imaging if clinically indicated. The ventricles and CSF spaces are unremarkable. The verónica rium is unremarkable. The mastoid air cells and the visualized paranasal sinuses are clear. Impression: No evidence of intracranial hemorrhage, mass effect or midline shift. If there are persistent clinical symptoms or additional clinical concerns consider an MRI. Report Electronically Signed By: Sony Loyola 03/12/2025 3:35:03 AM [EST]
--- NOTE | 2025-03-12 04:04 | PRELIM_ITS ---
CT scan of the cervical spine without intravenous contrast (axial sections with sagittal and coronal reformats) March 12, 2025 at 0304 hours Clinical History: Trauma. Comparison: None. Findings: There is no evidence of acute fracture or traumatic subluxation. There is reversal of the normal lordotic curvature of the cervical spine. There is a developmental defect in the posterior arch of the C1 vertebra. The prevertebral soft tissues are unremarkable. Cavitating lesions are seen at the lung apices bilaterally with associated scarring and infiltrates. Impression: 1. No evidence of acute fracture or traumatic subluxation. 2. Cavitating lesions at the lung apices bilaterally with associated scarring and infiltrates. 3. Other findings as described above. Suggest clinical correlation and follow up accordingly. Please also refer to report of CT chest. Report Electronically Signed By: Sony Loyola 03/12/2025 4:04:05 AM [EST]
--- NOTE | 2025-03-12 04:26 | PRELIM_ITS ---
CT scan of the chest without intravenous contrast (axial sections with sagittal and coronal reformats) March 12, 2025 0309 hours Clinical History: Chest pain, trauma No prior study is available for comparison. Findings: The superficial soft tissues are unremarkable. Evaluation of the sternum and some of the ribs is limited due to motion artifacts. There are cavitating lesions (the largest measuring 5 cm) in bilateral lung apices with adjacent scarring, airspace consolidation, bronchiectasis and infiltrates. There are extensive changes of airspace consolidation, cavitation, centrilobular nodules and bronchiectasis in bilateral lower lobes and right middle lobe. Findings suspicious for infectious etiology such as atypical mycobacterial infection or fungal infection. There is a small right pleural effusion. No evidence of pneumothorax. The main pulmonary arteries are dilated with the pulmonary trunk measuring 3.5 cm, which may represent pulmonary arterial hypertension. There is no pericardial effusion. Secretions are seen in the lower trachea. There is no evidence of acute fracture to the extent visualized. Diffuse fatty infiltration of the liver is noted. Please note that evaluation of soft tissue/vascular structures is limited due to absence of IV contrast. Impression: Limited evaluation due to absence of intravenous contrast and motion artifacts. 1. Cavitating lesions in bilateral lung apices with adjacent scarring, airspace consolidation, bronchiectasis and infiltrates. There are extensive changes of airspace consolidation, cavitation, centrilobular nodules and bronchiectasis in bilateral lower lobes and right middle lobe. Findings suspicious for infectious etiology such as atypical mycobacterial infection or fungal infection. 2. No evidence of acute fracture to the extent visualized. 3. Diffuse fatty infiltration of the liver. 4. Other findings as described above. Suggest clinical correlation and follow up accordingly. Discussion Details: Results Discussed With : Dr. Johnson at 04:21 AM 03/12/2025 Report Electronically Signed By: Sony Loyola 03/12/2025 4:26:37 AM [EST]
[2025-03-12 05:02] LABS: Quantiferon-TB* See Sep Rpt
[2025-03-12 06:01] LABS: Alcohol, Blood Medical < 3.0 mg/dL (0-10.0); Thyroid Stimulating Hormone 2.36 uIU/mL (0.55-4.78)
--- NOTE | 2025-03-12 06:44 | EDNOTE_ITS ---
Emergency Room Addendum Addendum Narrative: 0600: Care assumed from Dr. Johnson, the previous shift emergency physician. Past medical, surgical, social and family history reviewed. Vitals and home medications reviewed. I will assume the care of the patient at this time, pending MRI and final disposition. Please refer to the emergency department record for history and examination from initial visit.?The following addendum documentation note is intended to reflect any pending information, findings, or radiology results not included in the patient?s initial chart. 0935: I spoke with hospitalist Dr. Kim regarding admission. RADIOLOGY Ordering Physician: Remi Johnson MD Date of Service: 03/12/25 Procedure(s): MR head/brain wo con Accession Number(s): [id number] cc: Remi Johnson MD; Meño Garrett MD; NO PRIMARY/FAMILY,PHYSICIAN~ Examination: MRI brain without intravenous contrast. Date and time of exam: March 12, 2025, 0652 hrs. Indications: Onset altered mental status lethargy confusion beginning yesterday Technique: Multiple axial and sagittal images of the brain obtained. Siemens high-resolution 1.5 Vicky short bore scanners utilized. Sagittal sections, T1-weighted, TR 500, TE 14, are performed. Axial sections proton-density and T2-weighted have been obtained. Inversion recovery axial images, TR 9, 260, TE 111, TI 2500. Diffusion weighted images, axial sections, TR 4800, TE 128, B value 1000 Axial sections, ADC map, TR 4800, TE 128 Findings: Enlargement of the sella turcica is not present. The optic chiasm and infundibular are not remarkable. Prepontine and interpeduncular cisterns are not enlarged. There is no localized enlargement of the medulla or galina. Fourth ventricle and cerebellar tonsils appear normal in position. No subacute area of hemorrhage density is seen. Mass in the cerebellopontine angle region is not evident. Globes symmetrical. Orbital musculature including medial lateral rectus muscles do not exhibit abnormality. Diffusion-weighted images demonstrate multiple embolic foci of restricted diffusion, both cerebellar hemispheres, right occipital lobe, left basal ganglia, right and left parietal lobes, left caudate nucleus, with signal deficit on the ADC map Increased white matter signal evident Mass effect upon the ventricular system is not identified. Impression: Multiple embolic type acute infarcts, both cerebellar hemispheres, right occipital lobe, left basal ganglia including the caudate nucleus, right and left parietal lobes Dictated By: Meño Garrett MD Signed By: <Electronically signed by Meño Garrett MD in OV> 03/12/25 0734 = Ordering Physician: Remi Johnson MD Date of Service: 03/12/25 Procedure(s): MR orbits face neck wo con Accession Number(s): [id number] cc: Remi Johnson MD; Meño Garrett MD; NO PRIMARY/FAMILY,PHYSICIAN~ Examination: MRI of orbits face neck, without contrast Date and time of exam: March 12, 2025, 0652 hrs. Indications: Mouth sores and weight loss beginning last month Technique: Multiple axial sagittal and coronal images of the orbits face neck have been obtained with the Siemens high-resolution 1.5 Vicky MRI scanner. Images obtained include T2-weighted fat-suppressed sagittal sections, TR 3500, TE 46, T2 weighted coronal fat suppressed images, TR 3050, TE 84, T2-weighted transverse fat suppressed images, TR 3260, TE 63, proton density transverse images, TR 4720 TE 46, and T1 weighted coronal images, TR 560, TE 13. Findings: The images are degraded by patient motion No oropharyngeal mass is noted on this noncontrast study Images of the tongue are severely degraded by patient motion There is no prevertebral soft tissue prominence There is edema internal to the mandibular angles bilaterally The epiglottis is mildly thickened. There is no prevertebral soft tissue prominence Satisfactory alignment cervical vertebral bodies The cervical cord is unremarkable Impression: The images are degraded by continual patient motion No oropharyngeal mass is noted on this study. There is mild thickening of the epiglottis Consider shorter scan time CT scan soft tissue neck post intravenous contrast follow-up Dictated By: Meño Garrett MD Signed By: <Electronically signed by Meño Garrett MD in OV> 03/12/25 0756
[2025-03-12] MEDS: DEXTROSE 50%-WATER INJ 50 ML SYRINGE IVP (08:23)
[2025-03-12] MEDS: DEXTROSE 5%-0.45% NS 1,000 ML 75 ML IV (10:37)
[2025-03-12] MEDS: PIPER/TAZO 3.375 GM PREMIX 3.375 GM/50 ML BAG IV ×2 (10:37→21:23)
[2025-03-12 10:47] LABS: Troponin I 0.206 ng/mL (0.0-0.045)
[2025-03-12 12:02] LABS: Cocci Serology, IgM Negative (Negative)
[2025-03-12 12:53] LABS: Amphetamine/Methamp Scrn,U Negative (Negative); Barbiturate Screen,Urine Negative (Negative); Benzodiazepines Screen,Urine Negative (Negative); Benzoylecgonine Screen, Ur Negative (Negative); Fentanyl Screen,Urine Negative (Negative); Opiate Screen,Urine Negative (Negative); THC Screen,Urine Positive (Negative)
--- NOTE | 2025-03-12 13:47 | PCS.ST ---
Swallow Evaluation completed in ED. See report for details. Aspiration risk primarily with liquids. Puree/mod thick liquids with precautions. Consider non oral nutritional support at this time.
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
--- NOTE | 2025-03-12 15:25 | ESHP_ITS ---
<Statement entered by Derek Brewer MD - 03/12/25 16:48> Mina Jimenez is a 24-year-old male with no known past medical history who presents to the ED with mother and presumed stepfather after having had near syncopal episode. Patient himself is alert but unable to talk due to oral lesions and generalized weakness and history obtained from family in the room. Per family, patient tends to spend significant amount of time in his room and parents state that when they want to bring him into the hospital, patient refuses. Generally speaking, patient has been declining over the last year or so starting with lesions on his face but parents are unaware of significant swelling and serosanguineous and sanguinous drainage from right lower extremity. They also state that patient did not have any significant illnesses as a child and they suspect that patient may be autistic but was never formally diagnosed. Of note, patient is also severely cachectic but when spoken to alone, states that he does feel safe at home and that his parents care for him. Labs significant for initial lactic acidosis of 8.6 that downtrended to 2.1 after IVF, mildly elevated troponin that peaked at 0.24, albumin of 1.6, Pro- Shaquille of 19, WBC of 24. Spoke to pulmonology over the phone and recommended workup for fungal infection including cocci and aspergillosis as well as cystic fibrosis. CT chest showed severe cavitary lung opacities with miliary nodular pattern. Brain MRI showed multiple acute, embolic type infarcts. Foot x-ray showed possible early osteomyelitis of right lower extremity. Discussed case with pulmonology and recommended workup for fungal infections including aspergillosis and cocci, cystic fibrosis, atypical tuberculosis. Given MRI brain findings, also consuted neurology as well as infectious disease for possible osteomyelitis and pulmonary findings. housing coordinator connsulted for recommendations and will take precautions for refeeding syndrome. Wound care and social sciences chair also consulted. Otherwise, will closely monitor oxygen requirements, continue with vancomycin/zosyn and voriconazole. ----- Note reviewed and agree with care plan as documented. Please refer to the note below for further details. Plan discussed with attending physician Dr. Julio Brewer MD PGY-2 Internal Medicine Documentation for date of: 03/12/25 HPI History of Present Illness History of present illness: HPI: 24-year-old male with a past medical history of anorexia was brought in for weakness. Per the patient's parents, they advised the patient to see a doctor regarding his anorexia and weakness over the past year and a half and the patient had refused. They also mentioned that he had an autism diagnosis when he was younger. The patient lives in a trailer on the father's property and the parents do not have much contact with the patient. 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 The patient's condition has deteriorated over the past year and a half to the point where the patient felt like he was going to pass out the day of presentation. He was admitted for management of his acute hypoxic respiratory failure. ED course: Patient arrived to the ED with a temperature of 102, heart rate 122, respiratory rate 24, blood pressure 105/54, saturating 95% on 4 L nasal cannula. Patient was worked up was found to have a sodium of 132, potassium 3.8, chloride 96, bicarb 22, BUN/creatinine of 22 and 1.0 respectively, blood glucose 162, leukocytosis of 24, hemoglobin 9, platelets 381, PTT 38, INR 1.5, troponin 0.2, lactic acid 2.1, calcium 11.4, AST 107, ALT 36, TSH 2.6, Pro-Shaquille 19. MRI of the brain showed multiple embolic type acute infarcts in both cerebral hemispheres, the right occipital lobe, the left basal ganglia including the caudate nucleus, and the right and left parietal lobes. Chest CT showed severe cavitary lung opacities with miliary nodular pattern. CT abdomen pelvis showed hepatomegaly, fatty infiltration, ascites, cystitis, and suspicion for a small left perianal abscess. MRI of the orbits face and neck showed no oropharyngeal mass, there was mild thickening of the epiglottis. Patient was given 3 L normal saline, 1 g Tylenol, Zofran x 2, vancomycin x 1, Zosyn x 1, D50 x 1, hydralazine x 1, and was started on D5 half NS maintenance fluids. Patient was put on airborne precautions. Medicine was consulted and patient admitted to the floors. History: Past medical history: Anorexia, failure to thrive Surgical history: None Home medications: None Allergies: None Family history: Patient's mother admits to hypertension and diabetes in patient's grandmother Social history: Born in [place], raised in [place]. Lives on and off with his parents and also lives alone in his trailer with nobody. Used to work in the [employer] business with his dad, however has not worked in over a year. Per family, patient remains isolated, does not go to the doctor and is to himself. Denies any history of drug use, alcohol and smoking. Review of Systems Review of Systems Narrative Review of Systems: Review of Systems: * General: Denies fevers, chills. * HEENT: Denies headache, congestion, or sore throat. * Cardiac: Denies chest pain or palpitations. * Pulmonary: Admits to shortness of breath. * GI: Denies nausea, vomiting, diarrhea, constipation, melena, or hematochezia. * : Denies dysuria, hematuria, frequency, or urgency. * MSK: Denies pain in the extremities, joints, or myalgias. * Neuro: Denies weakness, numbness, vision changes, or speech difficulty. Exam Vital Signs Temp Pulse Resp BP Pulse Ox O2 Del Method O2 Flow Rate 97.3 F 123 H 28 H 90/63 88 L Oxy Mask 10 03/12/25 13:17 03/12/25 13:17 03/12/25 13:17 03/12/25 13:17 03/12/25 13:17 03/12/25 13:17 03/12/25 13:17 Narrative Exam General: Cachectic, in acute distress, unable to speak, disheveled, young man. Neurologic: Altered, one-word answers, responding to voice, no gross neurological deficit, and patient able to move all 4 extremities. HEENT: Approximate 3 x 3 cm abrasion inferior to the left orbit, proximal 2 x 2 abrasion inferior to the nares, poor dentition, mucous membranes dry. Visible thoracic vertebrae, visible scapulae, and visible clavicles. Heart: Tachycardic, regular rhythm, normal S1 and S2, no murmurs. Lungs: Increased work of breathing, intercostal muscle weakness, intact cough reflex, coarse breath sounds bilaterally, breathing 15 L oxygen mask satting at 92%, respiratory rate 30-35. Abdomen: Thin, soft, nondistended, nontender, positive bowel sounds, prominent hip bones. No guarding or rebound tenderness. Extremities: Pitting edema in the right lower extremity. Larger than 5 x 5 cm pressure ulcer over the right heel. Additional approximate 3 x 3 cm ulcer on the top of the foot. Additional large ulcer at the base of the right metatarsals of proximal 2 x 7 cm. Approximate 3 x 3 cm abrasion over the right knee. Approximate 2 x 2 cm abrasion in the right palm. The right foot is actively draining serosanguineous and bloody fluid. There are 3-4 larger than 3 cm in diameter ulcers around the perianal area. Skin: Cold. Dry. Results: Labs 03/11/25 16:00 03/11/25 16:00 Labs: Short CBC 03/11/25 Range/Units 16:00 WBC 24.4 H (3.8-10.6) Thou/mm3 Hgb 8.9 L (13.5-16.0) g/dL Hct 27.8 L (41.0-53.0) % Plt Count 381 (140-440) Thou/mm3 BMP 03/11/25 16:00 Sodium 132 L Potassium 3.8 Chloride 96 L Carbon Dioxide 21.9 BUN 22 Creatinine 1.0 Glucose 162 H Calcium 9.5 Cardiac Enzymes 03/11/25 03/11/25 03/12/25 Range/Units 16:00 18:55 10:14 Troponin I 0.220 H* 0.242 H* 0.206 H* (0.0-0.045) ng/mL Liver Function 03/11/25 Range/Units 16:00 Total Bilirubin 0.3 (0.3-1.2) mg/dL AST 107 H (0-34) U/L ALT 36 (10-49) U/L Alkaline Phosphatase 212 H (46-116) U/L Albumin 1.6 L (3.5-5.0) gm/dL Urine 03/11/25 Range/Units 22:25 Urine Color Yellow (Lt Yel-Yel) Urine Clarity Turbid A (Clear/Hazy) Urine pH 6.0 (5.0-7.0) Ur Specific Huger 1.034 (1.001-1.035) Urine Protein 1+ A (Neg - Trace) Urine Glucose (UA) Negative (Negative) Quality Measures Quality Measures none Medications Home Medications and Allergies Allergies Allergy/AdvReac Type Severity Reaction Status Date / Time No Known Allergies Allergy Verified 03/11/25 15:58 Visit Medications Heparin Sodium (Porcine) (Heparin Sod Inj 5000 Unit/Ml Vial) 5,000 unit SC Q12HR [facility] Stop: 03/26/25 09:59 Last Admin: 03/12/25 10:44 Dose: Not Given Dextrose/Sodium Chloride (D5-1/2ns) 1,000 mls @ 75 mls/hr IV .[id number] [facility] Stop: 04/11/25 09:59 Last Admin: 03/12/25 10:37 Dose: 75 mls/hr Piperacillin/Tazobactam/Dextrose (Zosyn) 3.375 gm in 50 mls @ 12.5 mls/hr IV Q8HR [facility] Stop: 03/19/25 21:59 Magnesium Sulfate (Magnesium Sulfate Ivpb) 2 gm in 50 mls @ 25 mls/hr IV X1 ONE Stop: 03/12/25 15:51 Albumin Human (Albuminar-25 Ivpb) 25 gm in 100 mls @ 100 mls/hr IV Q6HR [facility] Stop: 03/15/25 20:49 Ondansetron HCl (Ondansetron Inj 2 Mg/Ml Inj 2 Ml) 4 mg IVP Q6H PRN; Protocol PRN Reason: NAUSEA OR VOMITING Stop: 04/11/25 09:49 Discontinued Medications Dextrose (Dextrose 50%-Water Inj 50 Ml Syringe) 50 ml IVP X1 ONE Stop: 03/12/25 08:11 Last Admin: 03/12/25 08:23 Dose: 50 ml Fentanyl Citrate (Fentanyl Cit Inj 50 Mcg/Ml Amp 2ml) 50 mcg IVP X1 ONE Stop: 03/11/25 16:45 Last Admin: 03/11/25 18:30 Dose: Not Given Hydralazine HCl (Hydralazine Inj 20 Mg/Ml Vial) 10 mg IVP X1 ONE Stop: 03/11/25 22:04 Last Admin: 03/11/25 22:30 Dose: 10 mg Sodium Chloride (Ns) 1,000 mls @ 999 mls/hr IV .Q1H1M ONE Stop: 03/11/25 17:05 Last Infusion: 03/11/25 17:38 Dose: Infused Sodium Chloride (Ns) 1,000 mls @ 999 mls/hr IV .Q1H1M ONE Stop: 03/11/25 17:05 Last Infusion: 03/11/25 18:05 Dose: Infused Acetaminophen (Ofirmev Inj) 1,000 mg in 100 mls @ 250 mls/hr IV NOW ONE Stop: 03/11/25 17:10 Last Infusion: 03/11/25 18:09 Dose: Infused Vancomycin/Sodium Chloride (Vancomycin/Ns 1 Gm Ivpb) 200 mls @ 120 mls/hr IV X1 ONE Stop: 03/11/25 18:26 Last Infusion: 03/11/25 19:45 Dose: Infused Piperacillin/Tazobactam/Dextrose (Zosyn) 3.375 gm in 50 mls @ 100 mls/hr IV X1 ONE Stop: 03/11/25 17:50 Last Infusion: 03/11/25 20:05 Dose: Infused Sodium Chloride (Ns) 1,000 mls @ 999 mls/hr IV .Q1H1M ONE Stop: 03/11/25 19:35 Last Infusion: 03/11/25 20:05 Dose: Infused Piperacillin/Tazobactam/Dextrose (Zosyn) 3.375 gm in 50 mls @ 100 mls/hr IV X1 ONE Stop: 03/12/25 10:29 Last Infusion: 03/12/25 11:04 Dose: Infused Albumin Human (Albuminar-25 Ivpb) 25 gm in 100 mls @ 100 mls/hr IV X1 ONE Stop: 03/12/25 14:50 Lidocaine HCl (Lidocaine Viscous 2% 15 Ml Udc) 15 ml PO X1 ONE Stop: 03/11/25 16:45 Last Admin: 03/11/25 17:44 Dose: 15 ml Lidocaine/Prilocaine (Lidocaine/Prilocaine Cr 5gm 5 Gm Tube) 0 gm TOP X1 ONE Stop: 03/11/25 17:01 Last Admin: 03/11/25 17:44 Dose: 5 gm Ondansetron HCl (Ondansetron Inj 2 Mg/Ml Inj 2 Ml) 4 mg IVP X1 ONE; Protocol Stop: 03/11/25 16:45 Last Admin: 03/11/25 17:42 Dose: 4 mg Ondansetron HCl (Ondansetron Inj 2 Mg/Ml Inj 2 Ml) 4 mg IVP X1 ONE; Protocol Stop: 03/11/25 18:36 Last Admin: 03/11/25 20:06 Dose: Not Given Assessment & Plan Plan 24-year-old male with past medical history of anorexia and failure to thrive who presented with weakness that had been going on for the past year until he was finally convinced by his parents to see a doctor. The patient's medical history and presentation circumstances are provided by the patient's parents. The patient was admitted to medicine for management of his acute hypoxic respiratory failure. 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 The patient's glucose is mildly elevated at 162, alk phos is 212, and lipase is 12 which makes it difficult to reinforce cystic fibrosis based on pancreatic function. Plan: * Ceftriaxone and Zosyn started for empiric treatment of community-acquired pneumonia * Voriconazole 200 mg p.o. twice daily started * Echo ordered * Beta 1 3 D glucan ordered * Sweat chloride ordered * IgE with subclasses ordered * Ig A,G,M ordered * Cocci serology ordered * Aspergillus Ag EIA serum ordered * QuantiFERON TB ordered * Urine culture ordered #CVA rule out #Embolic stroke * MRI of the brain showed multiple embolic type acute infarcts in both cerebral hemispheres, the right occipital lobe, the left basal ganglia including the caudate nucleus, and the right and left parietal lobes * Neurology was consulted * Patient has swelling of the right lower extremity, suspicion for DVT Plan: * Echocardiogram ordered on suspicion of shower emboli * Follow-up venous Doppler ultrasound right lower extremity * Neurology performed lumbar puncture, follow-up results #Sepsis #Leukocytosis #Hypothermia * Patient meets SIRS criteria: Patient's temperature was 93.9 on arrival. White blood cell count 24.4 on arrival. Respiratory rate 24 on arrival. Heart rate 122 on arrival Plan: * Patient was warmed with blankets and warm air * Patient started on oxygen mask, currently at 10 L * Follow-up serology and CSF results for choosing the best antiinfectious agent * Empirically started on ceftriaxone, Zosyn, and voriconazole #Elevated troponin * Troponin 0.2 * Patient denies chest pain, admits to shortness of breath * EKG in the ED showed Sinus tachcyardia, Q-wave in lead I v5 v6, no acute ischemic changes Plan: * Continue to trend troponins #Anorexia BMI 12.7 #Protein calorie malnutrition * Patient's BMI is 12.7 * Patient mentions that his last meal was on Tuesday prior to admission Plan: * Will start diet as tolerated with close monitoring of potassium level for refeeding syndrome * Thiamine injection 100 mg IV daily * D5 one half normal saline 40 mL/h * Albumin 25 GM in 100 mL IV every 6 hours #Multiple ulcers * The patient has multiple skin ulcers as described in his physical exam * Consider in relation to infectious ideology, may be a disseminated infection * Does not appear to be trauma on examination of the patient, no ecchymoses Plan: * Follow up results of infectious serology studies #Leukopenia * Patient has a lymphocyte count of 4, normal is 10-50 * May be due to malnutrition versus undiagnosed immunodeficiency * HIV negative Plan: * Follow-up sweat chloride test for CF * Begin most appropriate antiinfectious agent as soon infectious studies return Hospital Maintenance: DVT ppx: Subcu heparin GI ppx: Ondansetron as needed for nausea IV lines: Peripheral IV Enciso: None Code status: Full code per the patient Dispo: Patient is in critical condition and in acute distress with increased work of breathing on 15 L oxygen mask. Anticipate the need for possible BiPAP, high flow, or possible intubation. Patient was seen and discussed with my attending physician Dr. Kim. Cameron Jara DO PGY-1. Attending Provider Attestation/Addendum I reviewed labs, imaging, EKG, home medications and prior available records. Face to face evaluation was performed by me. I have personally examined the patient and discussed assessment and plan with the IM team. I reviewed the resident note and agree with the plan with exceptions as below. Acute hypoxic respiratory failure Sepsis, likely secondary to pulmonary source Cavitary disease of lung Elevated troponin, likely type II non-STEMI in the setting of sepsis Embolic CVA Cachexia BMI 12.7 Multiple skin ulcers, can be in the setting of disseminated pulmonary disease versus negligence Hypoglycemia Leukopenia IV fluids IV Zosyn Send blood cultures Monitor WBC Ordered beta D glucan Ordered aspergillosis serology Ordered QuantiFERON and AFB x 3 Ordered cocci IgM Ordered echocardiogram Ordered immunoglobin serology Ordered CF serology Consulted pulmonology Consulted ID
--- NOTE | 2025-03-12 16:55 | XR_ITS ---
Examination: Venous duplex lower extremity sonogram, bilateral. Date and time of exam: March 12, 2025, 2057 hrs. Indications: Leg edema Ulcerations in the right leg and foot this week Technique: Multiple sonographic images of the deep venous system have been obtained. B-mode/2-D grayscale imaging of vascular structures and Doppler spectral analysis (waveforms) and color performed Both legs are examined. Findings: Positive for acute DVT in the right distal popliteal perineal and posterior tibial veins, nonocclusive Left deep venous system normal Impression: Positive for acute DVT in the distal right popliteal peroneal posterior tibial veins
[2025-03-12] MEDS: Magnesium Sulfate 2 GM Ivpb 2 GM/50 ML BAG IV (18:12)
[2025-03-12] MEDS: ALBUMIN HUMAN 25% IVPB 25 GM/100 ML BTL IV ×2 (18:12→21:16)
[2025-03-12] MEDS: THIAMINE INJ 100 MG/ML VIAL 2 ML IVP (18:12)
[2025-03-12] MEDS: DEXTROSE 5%-0.45% NS 1,000 ML 40 ML IV (18:14)
[2025-03-12 18:37] LABS: Troponin I 0.238 ng/mL (0.0-0.045)
[2025-03-12 19:42] LABS: Glucose,CSF 50 mg/dL (40-70); Protein Total,CSF 31 mg/dL (8-32)
[2025-03-12 20:38] LABS: Base Excess -2 (-3-3); HCO3 26 mEq/L (20-26); Inspired Oxygen, FIO2 100 %; O2 Saturation 97 % (91-98); PCO2 59 mmHg (32.0-48.0); PO2 103 mmHg (83-108); pH, Arterial 7.25 (7.35-7.45)
[2025-03-12 20:41] LABS: Allen Test Not Performed; Puncture Site Right Radial
[2025-03-12 20:45] LABS: CSF Cell Count Tube # Tube # 4
[2025-03-12 20:46] LABS: CSF Color Colorless (Colorless); CSF Mononuclear 100 %; CSF Polynuclear WBC 0 %; CSF Red Blood Cell 0 /cmm; CSF White Blood Cell 1 /cmm; CSF, Appearance Clear (Clear)
[2025-03-12] MEDS: ATORVASTATIN CALCIUM 20 MG TABLET 40 MG PO (21:15)
[2025-03-12] MEDS: VORICONAZOLE 200 MG TABLET PO (21:16)
[2025-03-12] MEDS: HEPARIN SOD INJ 5000 UNIT/ML VIAL SC (21:19)
[2025-03-12 21:46] LABS: CSF Gram Stain Alert Gram Stain Completed
[2025-03-12] MEDS: ONDANSETRON INJ 2 MG/ML INJ 2 ML 4 MG IVP (22:06)
--- NOTE | 2025-03-12 22:19 | PC.RT ---
pt on 15L oxy spo2 85% RR 30s pt asked if nausea and noted head no, asked pt he needs to go on bipap due to low sats and his labored breathing pt refuses bipap DR. Vela aware of spo2 and will come and assess pt.
[2025-03-12 23:21] LABS: Troponin I 0.245 ng/mL (0.0-0.045)
--- NOTE | 2025-03-12 23:30 | EKG_ITS ---
[facility] Test Date: 2025-03-12 Pat Name: EUGENE KAUFFMAN [facility] Gender[facility] Male [employer] Specialist: [id number] : 2000 Requested By: Omid Vela Order Number: [id number] Reading MD: Omid Vela Measurements Intervals [place] Rate: 78 P: 79 AK: 112 QRS: 117 QRSD: 122 T: 89 QT: 365 QTc: 418 Interpretive Statements SINUS RHYTHM WITH SHORT AK INTERVAL MARKED RIGHT AXIS DEVIATION RIGHT BUNDLE BRANCH BLOCK No previous ECG available for comparison /[id number]
--- NOTE | 2025-03-12 23:32 | PD.EVENT ---
Documentation for date of: 03/12/25 Date of procedure: 03/12/25 Pre-op diagnosis: Suspected infectious origin for his infarcts Post-op diagnosis: Same Consent signed by: Patient Position: lateral decubitus Prep: betadine Anesthesia: 1 % Lidocaine Sedation: none Needle size: 22ga Needle length: 3.5 Interspace: L3-4 Number of attempts: 1 Opening pressure: # cm H2O (28) Fluids mLs collected: 16 Fluid description: clear Complications: No Patient tolerance: good Procedure performed by: Niraj Gonzalez Condition: Stable
[2025-03-13] VITALS (37 sets, daily range): BP systolic 68–109; BP diastolic 38–63; PULSE 98–124; RESP 18–39; TEMP 34.7–36.2; O2SAT 81–99
[2025-03-13] MEDS: ALBUMIN HUMAN 25% IVPB 25 GM/100 ML BTL IV (00:55)
[2025-03-13 04:29] LABS: Coccid Serology, CF CSF (UCD)* See Sep Rpt
[2025-03-13 04:56] LABS: Base Excess -4 (-3-3); HCO3 27 mEq/L (20-26); Inspired Oxygen, FIO2 100 %; O2 Saturation 90 % (91-98); PCO2 94 mmHg (32.0-48.0); PO2 80 mmHg (83-108)
[2025-03-13 04:59] LABS: Allen Test Performed/OK; Puncture Site Right Radial; pH, Arterial 7.07 (7.35-7.45)
[2025-03-13 05:00] LABS: Basophils # (Auto) 0.0 Thou/mm3 (0.0-0.2); Basophils % (Auto) 0 % (0-2.5); Eosinophils # (Auto) 0.0 Thou/mm3 (0.0-0.5); Eosinophils % (Auto) 0 % (0-10); Hematocrit 30.9 % (41.0-53.0); Hemoglobin 9.2 g/dL (13.5-16.0); Immature Granulocytes Auto 1.59 Thou/mm3 (0.00-0.00); Lymphocytes # (Auto) 1.2 Thou/mm3 (1.0-4.8); Lymphocytes % (Auto) 3 % (10-50); Mean Corpuscular HGB Conc 29.8 g/dl (31.0-37.0); Mean Corpuscular Hemoglobin 24.9 pg (25.0-35.0); Mean Corpuscular Volume 84 fL (80-100); Monocytes # (Auto) 0.1 Thou/mm3 (0.0-0.8); Monocytes % (Auto) 0 % (0-12); Neutrophils # (Auto) 36.4 Thou/mm3 (1.8-7.7); Neutrophils % (Auto) 93 % (37-80); Nucleated Red Blood Cell # 0.02 Thou/mm3 (0.00-0.00); Nucleated Red Blood Cell % 0 /100 WBC (0); Platelet Count 257 Thou/mm3 (140-440); RDW Standard Deviation 54.9 fL (35.1-43.9); Red Blood Count 3.70 Miln/mm3 (4.50-5.90)
[2025-03-13 05:08] LABS: White Blood Count 39.3 Thou/mm3 (3.8-10.6)
[2025-03-13 05:09] LABS: Path Review Blood Smear Sent to Pathologist
[2025-03-13 05:24] LABS: Glucose Estimated Average 94 mg/dL (80-131); Hemoglobin A1C 4.9 % Hgb (4.8-6.0)
[2025-03-13 05:47] LABS: Alanine Aminotransferase 53 U/L (10-49); Albumin, Serum 2.4 gm/dL (3.5-5.0); Albumin/Globulin Ratio 0.8 (1.2-2.2); Alkaline Phosphatase 151 U/L (46-116); Anion Gap 9 (7-16); Aspartate Amino Transferase 192 U/L (0-34); BUN/Creatinine Ratio 23 Ratio (12-20); Bilirubin,Total 0.5 mg/dL (0.3-1.2); Blood Urea Nitrogen 18 mg/dL (9-23); Calcium 9.5 mg/dL (8.3-10.6); Calcium (Corrected) 10.8 mg/dL (8.5-10.1); Carbon Dioxide 25.3 mMol/L (20.0-31.0); Cardiac Risk Estimate 10.0 RATIO (4.0-6.7); Chloride 105 mMol/L (98-107); Cholesterol < 50 mg/dL (132-200); Creatinine (Component) 0.8 mg/dL (0.6-1.3); Estimated Creatinine Clearance 87.2 mL/min (>60); Globulin 3.2 gm/dL (2.3-3.5); HDL Cholesterol < 5 mg/dL (40-60); LDL Cholesterol,Calculated 32 mg/dL (0-130); Magnesium 1.8 mg/dL (1.6-2.6); Osmolality,Calculated 276 (275-295); Phosphorous 6.5 mg/dL (2.4-5.1); Potassium 3.8 mMol/L (3.4-5.1); Sodium 139 mMol/L (136-145); Total Protein 5.6 gm/dL (5.7-8.2); Triglycerides 65 mg/dL (30-150); eGFR > 60 See Note
--- NOTE | 2025-03-13 05:51 | XR_ITS ---
Examination: AP chest single view Technique one AP portable supine chest single view Date and time: March 13, 2025, 0703 hours, comparison 03/11/2025 INDICATIONS: Hypoxic respiratory failure postintubation. FINDINGS: Severe bilateral lung opacity Endotracheal tube tip 5.9 cm above kate Right subclavian central line tip SVC no pneumothorax Normal heart size Air distended stomach IMPRESSION: Severe bilateral pneumonia Endotracheal tube tip 5.9 cm above kate Right subclavian central line tip SVC
[2025-03-13 05:52] LABS: Glucose 41 mg/dL (74-106)
[2025-03-13] MEDS: DEXTROSE 50%-WATER INJ 50 ML SYRINGE 25 ML IVP (05:53)
[2025-03-13] MEDS: Norepinephrine/D5W 8mg/250ml 8 MG/250 ML BAG 4.095 MG IV (05:58)
[2025-03-13] MEDS: KETAMINE 50 MG/ML VIAL 10 ML IVP (06:01)
[2025-03-13] MEDS: EPINEPHrine INJ 0.1 MG/ML SYRINGE 10ML IVP (06:08)
[2025-03-13] MEDS: fentaNYL 2,500 MCG/250 ML BAG 2,500 MCG/250 ML BAG IV (06:10)
[2025-03-13] MEDS: PROPOFOL 1,000 MG IVPB 1,000 MG/100 ML VIAL 1.31 MG IV (06:15)
--- NOTE | 2025-03-13 06:26 | PD.RESEVENT ---
Documentation for date of: 03/13/25 Event Note Event Note: 24-year-old male without significant past medical history presented to the ED accompanied by his mother and presumed stepfather after a near-syncopal episode. On arrival, he was alert but unable to speak due to extensive oral lesions and generalized weakness. History was primarily obtained from family. Per family, the patient has been declining over the past year, beginning with facial lesions. They were unaware of the significant swelling and serosanguineous/sanguinous drainage from the right lower extremity. They also report that the patient spends most of his time isolated in his room and frequently refuses medical care. Parents suspect possible autism spectrum disorder, though he has never been formally diagnosed. On exam, the patient was severely cachectic. Initial Labs significant for initial lactic acidosis of 8.6 that downtrended to 2.1 after IVF, mildly elevated troponin that peaked at 0.24, albumin of 1.6, Pro-Shaquille of 19, WBC of 24. Spoke to pulmonology over the phone and recommended workup for fungal infection including cocci and aspergillosis as well as cystic fibrosis. CT chest showed severe cavitary lung opacities with miliary nodular pattern. Brain MRI showed multiple acute, embolic type infarcts. Foot x-ray showed possible early osteomyelitis of right lower extremity. The patient was initially admitted to telemetry. Pulmonology was consulted and recommended further infectious evaluation, including fungal studies (aspergillosis, coccidioidomycosis) and atypical tuberculosis. Overnight, the patient developed acute respiratory distress with tachypnea (respiratory rate 43/min) and hypoxemia, saturating only 89% despite high-flow oxygen. A BiPAP trial was initiated but not tolerated. Repeat arterial blood gas showed worsening respiratory acidosis with pH 7.07, pCO2 94, and persistent hypoxemia. Given progressive respiratory failure, the equipment manager was contacted, and the patient was intubated for airway protection and ventilatory support. Current Status: Intubated and mechanically ventilated Hemodynamically stable post-intubation Infectious workup in progress per pulmonology recommendations Plan: Continue ventilatory support per ICU protocol Close monitoring of hemodynamics and oxygenation Complete infectious workup (fungal serologies, cultures, TB studies) Ongoing ICU management Patient care was discussed with attending physician Dr. Brisa Vela MD PGY-3
[2025-03-13] MEDS: ROCURONIUM INJ 10 MG/ML VIAL 10 ML 50 MG IVP (06:38)
--- NOTE | 2025-03-13 07:11 | ESCONSULT_ITS ---
<Statement entered by Ty Deluca MD - 03/13/25 20:24> Mina Jimenez is a 24-year-old male with a PMH of anorexia, failure to thrive, and reported autism spectrum disorder who presents to the ICU with acute respiratory failure with hypoxia and hypercarbia requiring intubation for airway protection and ventilatory support. 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 Also will give 1 dose of liposomal amphotericin B and terconazole 400 mg IV twice daily for disseminated cocci. Voriconazole IV is currently out of stock and pharmacy will have available by tomorrow. For patient's septic shock he is on vancomycin. Cardiology, Dr. Manjarrez was consulted for patient's obstructive shock and will undergo emergent pericardiocentesis today in the [facility]. Transfer was initiated to [facility] for CRRT, however transfer was denied with the reason being patient having extremely poor prognosis. HPI Data of Consult Requesting Physician: Bladimir Kim MD Admitting Provider: Bladimir Kim MD Attending Provider: Bladimir Kim MD Primary Care Provider: Physician No Primary/Family Consult Narrative History of present illness: Mina Jimenez is a 24-year-old male with a PMH of anorexia, failure to thrive, and reported autism spectrum disorder who presents to the ICU with acute respiratory failure with hypoxia and hypercarbia requiring intubation for airway protection and ventilatory support. Initially, patient had been seen in the ED on 03/11/25 with his mother and father for a near?syncopal episode where patient was noted to be severely cachectic with facial/oral lesions as well as swelling and serosanguineous/sanguineous drainage from the right lower extremity and foot. Patient was then admitted to telemetry on 03/12 after he developed acute hypoxic respiratory failure and was revealed to have multiple embolic type acute infarcts scattered about bilaterally on brain MRI, cavitary lung opacities with miliary nodular pattern on chest CT, and hepatomegaly with fatty infiltration and ascites on CTAP. However, overnight, patient developed acute respiratory distress with tachypnea (respiratory rate 43/min) and hypoxemia (SPO2 89% on high flow oxygen). A BiPAP trial was initiated but not tolerated and repeat arterial blood gas showed worsening respiratory acidosis with a pH of 7.07, pCO2 94, and persistent hypoxemia. This led to intubation and ICU admission on 03/13. In the ICU, vitals showed: BP 105/54 HR 122 RR 24 Temp 101.9 SpO2 87% while intubated ICU Course: CBC showed WBC 39.3 with neutrophilic predominance and hemoglobin 9.2. ABG of the right radial artery showed pH 7.07, PCO2 94, PO2 80, HCO3 27, and O2 saturation 90. CMP showed glucose 41, hemoglobin A1c 4.9, corrected calcium 10.8, phosphorus 6.5, AST 192, ALT 53, alkaline phosphatase 151, troponin I 0.245, and albumin 2.4. CSF was clear and colorless with mononuclear WBCs 100, polynuclear WBCs 0, glucose 50, and total protein 31. UDS was positive for marijuana but otherwise negative. Imagin/1 chest x-ray showed severe bilateral pneumonia (with miliary active tuberculosis as a possible differential). 03/11 foot x-ray showed suspicious findings for early osteomyelitis involving the medial navicular and medial cuneiform. It also showed multiple soft tissue nodular densities primarily dorsal to the metatarsals and digits but also dorsal to the tarsal bones and about the calcaneus. 03/[address] showed chronic maxillary antral ethmoid sinus disease, mild erosion involving the anterior maxilla, suspicious findings for nondisplaced fractures of anterior and lateral right maxillary antrum, and incisor mandibular dental caries. 03/[address] showed subtle low-density areas in the anterior tongue and severe cavitary parenchymal disease throughout the visualized lungs. 03/11 CTAP showed severe miliary nodular pattern in the lung wright, hepatomegaly 19 cm with prominent fatty infiltration throughout the liver, ascites, cystitis pattern, and suspicious findings for small left perianal abscess. 03/[address] showed no acute cervical fracture. 03/[address] showed severe cavitary lung opacities with miliary nodular pattern. 03/[address] was negative for acute hemorrhage, mass effect, or midline shift. 03/12 brain MRI showed multiple embolic type acute infarcts in both cerebellar hemispheres, right occipital lobe, left basal ganglia including the caudate nucleus, and the right and left parietal lobes. 03/12 orbital MRI showed mild thickening of the epiglottis. 03/12 venous duplex ultrasound showed acute, non-occlusive, DVT in the right distal, popliteal, peroneal, and posterior tibial veins. 03/12 EKG showed sinus rhythm with short VT interval, marked right axis deviation, right bundle branch block, and normal QTc 418. 03/13 chest x-ray showed severe bilateral pneumonia, endotracheal tube tip 5.9 cm above kate, and right subclavian central line tip SVC. In the ICU, IV D50, IV D5 NS maintenance fluid, Zosyn, albumin, IV magnesium sulfate, IV thiamine, atorvastatin, p.o. voriconazole, Zofran, IV Levophed drip 0.05 mcg, IV ketamine, IV epinephrine, IV fentanyl, IV propofol, IV rocuronium, IV vasopressin 0.03, IV hydrocortisone, IV NS bolus, IV amphotericin B, IV vancomycin, IV midazolam, and IV phenylephrine. IV fluconazole was also ordered but had not been given. Despite all the above, patient continued to have respiratory failure and hypotension while intubated with ventilator support on PEEP and was noted to have pericardial effusion of moderate to large size with right atrial collapse suggesting cardiac tamponade. Due to the aforementioned situation, consent was obtained from patient's parents to proceed with pericardiocentesis to improve blood pressure and patient was sent to the [facility] with Cardiology consulted and following. cc:: cc: Bladimir Kim MD Review of Systems Review of Systems ROS Unobtainable: due to endotracheal tube Past Medical History Past Medical History Comments PMH COMMENT: Unobtainable due to endotracheal tube Exam Vital Signs Temp Pulse Resp BP Pulse Ox O2 Del Method O2 Flow Rate 97.2 F 110 H 38 H 97/46 L 87 L BiPAP 15 03/13/25 00:00 03/13/25 06:27 03/13/25 05:11 03/13/25 06:27 03/13/25 06:27 03/13/25 00:00 03/12/25 22:13 FiO2 100 03/13/25 06:27 Narrative Exam Gen: Cachectic, frail-appearing, disheveled. Intubated, vitals reviewed. HEENT: Approximate 3 x 3 cm abrasion inferior to the left orbit, oozing blood from nostrils and mouth. Nasal septum absent. Resp: Tachypneic with increased work of breathing. Coarse inspiratory and expiratory breath sound bilaterally. Symmetric chest rise and intubated with ventilator support. CV: Tachycardic, regular rhythm. Normal S1 and S2. GI: Thin, soft, nondistended, nontender, positive bowel sounds, prominent hip bones. No guarding or rebound tenderness. Extremities/Skin: Oozing blood from multiple areas including nostrils, mouth, right leg and foot. Larger than 5 x 5 cm pressure ulcer over the right heel. Additional approximate 3 x 3 cm ulcer on the top of the foot. Additional large ulcer at the base of the right metatarsals of proximal 2 x 7 cm. Approximate 3 x 3 cm abrasion over the right knee. Approximate 2 x 2 cm abrasion in the right palm. The right foot is actively draining serosanguineous and bloody fluid with nodules noted. There are 3-4 larger than 3 cm in diameter ulcers around the peroneal area. Neuro/MSK: Deferred. Results Labs 03/13/25 04:19 03/13/25 04:19 Labs: Short CBC 03/13/25 Range/Units 04:19 WBC 39.3 H* D (3.8-10.6) Thou/mm3 Hgb 9.2 L (13.5-16.0) g/dL Hct 30.9 L (41.0-53.0) % Plt Count 257 D (140-440) Thou/mm3 BMP 03/13/25 04:19 Sodium 139 Potassium 3.8 Chloride 105 Carbon Dioxide 25.3 BUN 18 Creatinine 0.8 Glucose 41 L* D Calcium 9.5 Cardiac Enzymes 03/12/25 03/12/25 03/12/25 Range/Units 10:14 16:56 22:30 Troponin I 0.206 H* 0.238 H* 0.245 H* (0.0-0.045) ng/mL Liver Function 03/13/25 Range/Units 04:19 Total Bilirubin 0.5 (0.3-1.2) mg/dL AST 192 H (0-34) U/L ALT 53 H (10-49) U/L Alkaline Phosphatase 151 H D (46-116) U/L Albumin 2.4 L D (3.5-5.0) gm/dL ABG Interpretation ABG results: 03/12/25 03/13/25 20:24 04:42 ABG pH 7.25 L 7.07 L* D ABG pCO2 59 H 94 H* D ABG pO2 103 80 L D ABG HCO3 26 27 H ABG O2 Saturation 97 90 L ABG Base Excess -2 -4 L Quality Measures Quality Measures none Medications Home Medications and Allergies Home Medications ?Medication ?Instructions ?Recorded ?Confirmed ?Type No Known Home Medications 03/12/2509/04 History Allergies Allergy/AdvReac Type Severity Reaction Status Date / Time No Known Allergies Allergy Verified 03/11/25 15:58 Visit Medications Atorvastatin Calcium (Atorvastatin Calcium 20 Mg Tablet) 40 mg PO HS ZULEYKA Stop: 04/11/25 20:59 Last Admin: 03/12/25 21:15 Dose: 40 mg Heparin Sodium (Porcine) (Heparin Sod Inj 5000 Unit/Ml Vial) 5,000 unit SC Q12HR ZULEYKA Stop: 03/26/25 09:59 Last Admin: 03/12/25 21:19 Dose: 5,000 unit Piperacillin/Tazobactam/Dextrose (Zosyn) 3.375 gm in 50 mls @ 12.5 mls/hr IV Q8HR ZULEYKA Stop: 03/19/25 21:59 Last Admin: 03/12/25 21:23 Dose: 12.5 mls/hr Albumin Human (Albuminar-25 Ivpb) 25 gm in 100 mls @ 100 mls/hr IV Q6HR ZULEYKA Stop: 03/15/25 20:49 Last Admin: 03/13/25 00:55 Dose: 100 mls/hr Dextrose/Sodium Chloride (D5-1/2ns) 1,000 mls @ 40 mls/hr IV .Q24H ONE Stop: 03/13/25 16:16 Last Admin: 03/12/25 18:14 Dose: 40 mls/hr Propofol (Diprivan Ivpb) 1,000 mg in 100 mls @ 1.31 mls/hr IV .Q24H PRN; Protocol PRN Reason: PER PROTOCOL Stop: 04/12/25 05:27 Fentanyl Citrate (Sublimaze Inj 2,500 Mcg/250 Ml Bag) 2,500 mcg in 250 mls @ 2.5 mls/hr IV .Q24H PRN; Protocol PRN Reason: PER PROTOCOL Stop: 03/18/25 05:41 Last Admin: 03/13/25 06:10 Dose: 25 mcg/hr, 2.5 mls/hr Norepinephrine/Dextrose (Levophed In D5w 8mg/250ml) 8 mg in 250 mls @ 4.095 mls/hr IV .Q24H PRN; Protocol PRN Reason: PER PROTOCOL Stop: 04/12/25 05:49 Last Admin: 03/13/25 05:58 Dose: 0.05 mcg/kg/min, 4.095 mls/hr Vasopressin/Sodium Chloride (Vasostrict/Ns Ivpb) 20 unit in 100 mls @ 9 mls/hr IV .Q11H7M PRN; Protocol PRN Reason: PER PROTOCOL Stop: 04/12/25 06:47 Ondansetron HCl (Ondansetron Inj 2 Mg/Ml Inj 2 Ml) 4 mg IVP Q6H PRN; Protocol PRN Reason: NAUSEA OR VOMITING Stop: 04/11/25 09:49 Last Admin: 03/12/25 22:06 Dose: 4 mg Thiamine HCl (Thiamine Inj 100 Mg/Ml Vial 2 Ml) 100 mg IVP QDAY ZULEYKA; Protocol Stop: 04/11/25 15:59 Last Admin: 03/12/25 18:12 Dose: 100 mg Voriconazole (Voriconazole 200 Mg Tablet) 200 mg PO BID ZULEYKA Stop: 03/19/25 20:59 Last Admin: 03/12/25 21:16 Dose: 200 mg Discontinued Medications Dextrose (Dextrose 50%-Water Inj 50 Ml Syringe) 50 ml IVP X1 ONE Stop: 03/12/25 08:11 Last Admin: 03/12/25 08:23 Dose: 50 ml Dextrose (Dextrose 50%-Water Inj 50 Ml Syringe) 50 ml IVP X1 ONE Stop: 03/13/25 05:52 Last Admin: 03/13/25 06:31 Dose: Not Given Dextrose (Dextrose 50%-Water Inj 50 Ml Syringe) 25 ml IVP X1 ONE Stop: 03/13/25 06:15 Last Admin: 03/13/25 05:53 Dose: 25 ml Fentanyl Citrate (Fentanyl Cit Inj 50 Mcg/Ml Amp 2ml) 50 mcg IVP X1 ONE Stop: 03/11/25 16:45 Last Admin: 03/11/25 18:30 Dose: Not Given Hydralazine HCl (Hydralazine Inj 20 Mg/Ml Vial) 10 mg IVP X1 ONE Stop: 03/11/25 22:04 Last Admin: 03/11/25 22:30 Dose: 10 mg Hydrocortisone Sodium Succinate (Hydrocortisone Sod Succ Inj 100 Mg 2 Ml Vial) 100 mg IV X1 ONE Stop: 03/13/25 06:49 Sodium Chloride (Ns) 1,000 mls @ 999 mls/hr IV .Q1H1M ONE Stop: 03/11/25 17:05 Last Infusion: 03/11/25 17:38 Dose: Infused Sodium Chloride (Ns) 1,000 mls @ 999 mls/hr IV .Q1H1M ONE Stop: 03/11/25 17:05 Last Infusion: 03/11/25 18:05 Dose: Infused Acetaminophen (Ofirmev Inj) 1,000 mg in 100 mls @ 250 mls/hr IV NOW ONE Stop: 03/11/25 17:10 Last Infusion: 03/11/25 18:09 Dose: Infused Vancomycin/Sodium Chloride (Vancomycin/Ns 1 Gm Ivpb) 200 mls @ 120 mls/hr IV X1 ONE Stop: 03/11/25 18:26 Last Infusion: 03/11/25 19:45 Dose: Infused Piperacillin/Tazobactam/Dextrose (Zosyn) 3.375 gm in 50 mls @ 100 mls/hr IV X1 ONE Stop: 03/11/25 17:50 Last Infusion: 03/11/25 20:05 Dose: Infused Sodium Chloride (Ns) 1,000 mls @ 999 mls/hr IV .Q1H1M ONE Stop: 03/11/25 19:35 Last Infusion: 03/11/25 20:05 Dose: Infused Dextrose/Sodium Chloride (D5-1/2ns) 1,000 mls @ 75 mls/hr IV .[id number] ZULEYKA Stop: 04/11/25 09:59 Last Admin: 03/12/25 10:37 Dose: 75 mls/hr Piperacillin/Tazobactam/Dextrose (Zosyn) 3.375 gm in 50 mls @ 100 mls/hr IV X1 ONE Stop: 03/12/25 10:29 Last Infusion: 03/12/25 11:04 Dose: Infused Albumin Human (Albuminar-25 Ivpb) 25 gm in 100 mls @ 100 mls/hr IV X1 ONE Stop: 03/12/25 14:50 Last Admin: 03/12/25 18:12 Dose: 100 mls/hr Magnesium Sulfate (Magnesium Sulfate Ivpb) 2 gm in 50 mls @ 25 mls/hr IV X1 ONE Stop: 03/12/25 15:51 Last Admin: 03/12/25 18:12 Dose: 25 mls/hr Dextrose/Sodium Chloride (D5-1/2ns) 1,000 mls @ 40 mls/hr IV .Q24H ZULEYKA Stop: 04/11/25 15:56 Last Admin: 03/12/25 18:13 Dose: Not Given Norepinephrine Bitartrate (Levophed In Ns 16mg/250ml) 16 mg in 250 mls @ 2.048 mls/hr IV .Q24H PRN; Protocol PRN Reason: PER protocol Stop: 04/12/25 05:25 Propofol (Diprivan Ivpb) 1,000 mg in 100 mls @ 1.31 mls/hr IV .Q24H PRN; Protocol PRN Reason: PER PROTOCOL Stop: 04/12/25 05:27 Ketamine HCl (Ketamine 50 Mg/Ml Vial 10 Ml) 25 mg IVP X1 ONE Stop: 03/13/25 05:25 Last Admin: 03/13/25 06:27 Dose: Not Given Ketamine HCl (Ketamine 50 Mg/Ml Vial 10 Ml) 50 mg IVP X1 ONE Stop: 03/13/25 07:01 Lidocaine HCl (Lidocaine Viscous 2% 15 Ml Udc) 15 ml PO X1 ONE Stop: 03/11/25 16:45 Last Admin: 03/11/25 17:44 Dose: 15 ml Lidocaine/Prilocaine (Lidocaine/Prilocaine Cr 5gm 5 Gm Tube) 0 gm TOP X1 ONE Stop: 03/11/25 17:01 Last Admin: 03/11/25 17:44 Dose: 5 gm Ondansetron HCl (Ondansetron Inj 2 Mg/Ml Inj 2 Ml) 4 mg IVP X1 ONE; Protocol Stop: 03/11/25 16:45 Last Admin: 03/11/25 17:42 Dose: 4 mg Ondansetron HCl (Ondansetron Inj 2 Mg/Ml Inj 2 Ml) 4 mg IVP X1 ONE; Protocol Stop: 03/11/25 18:36 Last Admin: 03/11/25 20:06 Dose: Not Given Rocuronium [place] (Rocuronium Inj 10 Mg/Ml Vial 10 Ml) 44 mg 1 mg/kg (44 mg) IV X1 ONE Stop: 03/13/25 05:26 Last Admin: 03/13/25 06:27 Dose: Not Given Rocuronium [place] (Rocuronium Inj 10 Mg/Ml Vial 10 Ml) 50 mg IVP X1 ONE Stop: 03/13/25 06:05 Last Admin: 03/13/25 06:38 Dose: 50 mg Sodium Bicarbonate (Sodium Bicarb Inj 8.4% Syr 50 Ml Syringe) 50 ml IV X1 ONE Stop: 03/13/25 05:57 Last Admin: 03/13/25 06:32 Dose: Not Given Sodium Chloride (Sodium Chloride Rt 10% 15 Ml Nebu) 5 ml INH X1 ONE Stop: 03/13/25 06:25 Assessment & Plan Plan Mina Jimenez is a 24-year-old male with a PMH of anorexia, failure to thrive, and reported autism spectrum disorder who presents to the ICU with acute respiratory failure with hypoxia and hypercarbia requiring intubation for airway protection and ventilatory support. In the ICU, IV D50, IV D5 NS maintenance fluid, Zosyn, albumin, IV magnesium sulfate, IV thiamine, atorvastatin, p.o. voriconazole, Zofran, IV Levophed drip 0.05 mcg, IV ketamine, IV epinephrine, IV fentanyl, IV propofol, IV rocuronium, IV vasopressin 0.03 you, IV hydrocortisone, IV NS bolus, IV amphotericin B, IV vancomycin, IV midazolam, and IV phenylephrine. IV fluconazole was also ordered but had not been given. Despite all the above, patient continued to have respiratory failure and hypotension while intubated with ventilator support on PEEP and was noted to have pericardial effusion of moderate to large size with right atrial collapse suggesting cardiac tamponade. Due to the aforementioned situation, consent was obtained from patient's parents to proceed with pericardiocentesis to improve blood pressure and patient was sent to the [facility] with Cardiology consulted and following. NEURO #Multiple embolic-type acute infarcts #Syncope-like event #DVT Initial reason for being seen in the ED was a near-syncopal episode and patient appeared seemingly altered on initial neurological exam MRI of the brain showed multiple embolic type acute infarcts in both cerebral hemispheres, the right occipital lobe, the left basal ganglia including the caudate nucleus, and the right and left parietal lobes Venous duplex ultrasound showed acute, non-occlusive, DVT in the right distal, popliteal, peroneal, and posterior tibial veins DDx: infectious meningitis, mass effect 2/2 tumor or metastatic lesion, acute hemorrhagic stroke Dx: -Head CT was negative for acute hemorrhage, mass effect, or midline shift. -CSF was clear and colorless with mononuclear WBCs 100, polynuclear WBCs 0, glucose 50, and total protein 31 -UDS was positive for marijuana but otherwise negative. -Cervical spine CT showed no acute cervical fracture. Rx: -Heparin DVT prophylaxis RRx: -Repeat brain imaging should new focal neurologic deficits arise -Assess neurological status to determine for lasting focal neurologic deficits and possible new baseline once patient has stabilized from a cardiopulmonary standpoint CARDIO #Septic shock #Hypothermia #Hypotension CBC showed WBC 39.3 with neutrophilic predominance and vitals included: BP 105/54 HR 122 RR 24 Temp 101.9 SpO2 87% while intubated (4/4) SIRS criteria met with confirmed source of systemic infection (see ID) manifesting as but not limited to possible pneumonia or possible osteomyelitis in the setting of hypotension and hypoxemia DDx: None Dx: -See ID section. Rx: -Pressors (Levophed, phenylephrine, epinephrine, vasopressin) -Fluid resuscitation -Albumin -IV Vancomycin -Treat underlying infectious etiology RRx: -Monitor blood pressure, temperature, and CBC #Cardiac tamponade #Obstructive shock #Elevated troponin #Refractory hypotension Bedside ultrasound revealed a pericardial effusion of moderate to large size with right atrial collapse suggesting cardiac tamponade Patient remained hypotensive despite use of Levophed, phenylephrine, epinephrine, vasopressin, and fluid resuscitation Troponin I elevated at 0.245 DDx: None Dx: -None Rx: -Emergent Cardiology consult for pericardiocentesis -Pressors (Levophed, phenylephrine, epinephrine, vasopressin) -Fluid resuscitation -Trend troponin RRx: -Follow up on outcome of pericardiocentesis (if successful will try to transfer patient to [facility] for possible ECMO) PULM #Acute respiratory failure with hypoxia and hypercarbia (requiring intubation and ventilatory support) #Severe bilateral pneumonia #Miliary and cavitary disease of the lung #Respiratory acidosis #Epiglottitis #? Pulmonary embolism Likely 2/2 multifactorial contributions including septic shock in the setting of suspected disseminated coccidiomycosis, obstructive shock in the setting of cardiac tamponade, multiple embolic-type acute brain infarcts, possible pulmonary embolism 2/2 DVT embolization, intrinsic parenchymal disease of the lung 2/2 infectious etiology DDx: See ID section. Dx: -ABG of the right radial artery showed pH 7.07, PCO2 94, PO2 80, HCO3 27, and O2 saturation 90. -Chest x-ray showed severe bilateral pneumonia -Soft tissue neck CT showed subtle low-density areas in the anterior tongue and severe cavitary parenchymal disease throughout the visualized lungs. -CTAP showed severe miliary nodular pattern in the lung wright -Chest CT showed severe cavitary lung opacities with miliary nodular pattern -Orbital MRI showed mild thickening of the epiglottis -Venous duplex ultrasound showed acute, non-occlusive, DVT in the right distal, popliteal, peroneal, and posterior tibial veins Rx: -Sedation -Pain control -Adjust ventilator settings as appropriate -IV hydrocortisone for ARDS and inflammation -Plan to place patient prone RRx: -Follow up on ABG -Follow up on outcome of pericardiocentesis (if successful will try to transfer patient to [facility] for possible ECMO) GI #Transaminitis #Ascites #Hepatomegaly with fatty infiltration Likely 2/2 multifactorial etiologies including disseminated coccidiodomycosis #Malnutrition #Hypoglycemia #Failure to thrive Glucose 41, given IV thiamine and D50 as appropriate NEPHRO No active problems. URO No active problems. HEME #Leukocytosis CBC showed WBC 39.3 with neutrophilic predominance, see ID section. ENDO No active problems. 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 Patient tends to spend a significant amount of time in his room and parents report trying to get him to be seen in the hospital but him refusing Given this history of reclusiveness, nodular appearance of skin lesions, Critical access hospital regionality, lack of travel history or recent exposures for TB, lung imaging, and HIV(-) status, the working diagnosis is that patient's current overall presentation is ultimately 2/2 disseminated coccidiodomycosis DDx: miliary tuberculosis, invasive aspergillosis, cystic fibrosis, congenital immunodeficiency, occult malignancy Dx: -Foot x-ray showed suspicious findings for early osteomyelitis involving the medial navicular and medial cuneiform. It also showed multiple soft tissue nodular densities primarily dorsal to the metatarsals and digits but also dorsal to the tarsal bones and about the calcaneus. -Face CT showed chronic maxillary antral ethmoid sinus disease, mild erosion involving the anterior maxilla, suspicious findings for nondisplaced fractures of anterior and lateral right maxillary antrum, and incisor mandibular dental caries. -Soft tissue neck CT showed subtle low-density areas in the anterior tongue and severe cavitary parenchymal disease throughout the visualized lungs. -CTAP showed severe miliary nodular pattern in the lung wright, hepatomegaly 19 cm with prominent fatty infiltration throughout the liver, ascites, cystitis pattern, and suspicious findings for small left perianal abscess -Chest CT showed severe cavitary lung opacities with miliary nodular pattern -HIV (-) Rx: -IV Amphotericin B -IV fluconazole -Plan to switch to PO voriconazole tomorrow -Zosyn RRx: -Follow up on studies including: coccidioides antibodies, peripheral blood smear, cystic fibrosis studies, beta-(1,3)-D-glucan, aspergillus studies, syphilis serology, CSF infectious studies (Neisseria, Streptococcus, Haemophilus, Enterovirus, E.coli. HSV), CSF oligoclonal bands, CSF JAYLEN, and CSF VDRL MSK No active problems. SKIN #Cutaneous and mucocutaneous lesions/ulcers Related to infectious etiology, see ID section. DVT prophylaxis: Heparin GI prophylaxis: None Diet: NPO Enciso: Present Lines: Peripheral IV, Central IV Antibiotics/Antifungals: Zosyn, voriconazole, vancomycin, amphotericin B, fluconazole (not given) CODE STATUS: FULL Reason for ICU care: acute respiratory failure with hypoxia and hypercarbia requiring intubation for airway protection and ventilatory support Patient plan of care was discussed with the attending steel wheel engraver, Dr. Castellon. Anthony Brito, PGY-1 Attending Provider Attestation/Addendum Patient seen and examined with above resident, Anthony Brito DO. I agree with the findings, assessment, and plan of care as document except for any differences as detailed in my attestation of final discharge summary. Detail for all services throughout the day were documented there. In summary, probable disseminated coccidioidomycosis based on notable skin lesions and osteomyelitis rapid development of with refractory shock and ARDS. Course complicated by severe protein malnutrition. Patient deemed not a candidate for ECMO therapy by multiple centers. Patient unfortunately demise during pericardiocentesis in [employer]. Condolences given to family at the time of .
--- NOTE | 2025-03-13 07:11 | PD.RESPROC ---
PROCEDURES: Procedure Date / Time 03/13/25 0711 Procedure Narrative Procedure Narrative: Attending Attestation: I was present for entire procedure. Patient tolerated procedure well with no immediate complications. No significant blood loss. Arterial Line Indication(s): frequent arterial line sampling, hypoxic resp failure, shock and inability to monitor non-invasive BP Informed consent obtained: procedure done urgently Time out done, and the following verified: correct patient, side and site, procedure, patient position and implants and/or equipment Size (Gauge): 20 Technique used: guide wire technique Post-Procedure: line sutured into place and dry sterile dressing placed Patient tolerated procedure: well and no complications EBL(ml): 5 Complications: none Site: right and radial Procedure comment: Procedure performed under supervision of Dr. Castellon. Mendoza Delatorre MD, PGY 3. Disclaimer: This note was dictated by speech recognition. Minor errors in boat engine mechanic may be present due to voice recognition software.
--- NOTE | 2025-03-13 07:31 | ESOP_ITS ---
PROCEDURES: Procedure Date / Time 03/13/25 0530 Procedure Narrative Procedure Narrative: Attending attestation: I was present for entire procedure. No immediate complications. Patient with anticipated hypotension which was treated with pre- existing Levophed drip and additional push of 20 mcg of epinephrine. Patient stabilized with return of oxygenation in the high 80s. ET tube confirmed on chest film in adequate position. Patient subsequently went underwent right subclavian vein catheterization. Minimal blood loss. No immediate complications. Single attempt completed with ultrasound guidance. No postprocedural pneumothorax. Tip of CVC in appropriate position. Arterial Line Size (Gauge): 20 Central Line Placement Right SC: Indication(s): shock and poor, or inadequate peripheral venous access Informed consent obtained: procedure done urgently Time out done, and the following verified: correct patient, side and site, procedure, patient position and implants and/or equipment Patient placed on monitor/pulse ox: Yes Hand Hygiene: scrub, soap & water and alcohol-based hand rub Max Sterile Barrier Techniques used: cap, mask, sterile gown, sterile gloves and sterile full body drape Central line prep: Chlorhexidine scrub and sterile drapes applied Local anesthesia used: lidocaine 1% Amount of anesthesia used (mL): 5 Ultrasound used for placement: Yes Sterile Technique if Ultrasound used, including sterile gel: yes Central line lumen inserted: triple Post procedure: sutured in place, good blood return, all ports aspirated, flushed, capped and sterile dressing applied Post procedure x-ray: tip of catheter in good position and no pneumothorax seen Patient tolerated procedure: well EBL(ml): 5 Complications: none Intubation Indication(s): acute Resp Failure and inability to protect airway Informed consent obtained: from patient Time out done, and the following verified: correct patient, side and site, procedure, patient position and implants and/or equipment Sedative: ketamine Mg given: 50 Paralytic: rocuronium Mg given: 50 Laryngoscope: fiber optic video scope Assist device used: fiber optic device ET tube size: 7 ET tube uncuffed: Yes Tube secured location: teeth Tube placement confirmation: visualized tube passing through cords, equal breath sounds bilaterally, no breath sounds over epigastrium and confirmation by capnometry Patient tolerated procedure: well EBL(ml): 0 Intubation complications: none
[2025-03-13 08:06] LABS: Ag, Group B Strep Negative (Negative); Ag, H Influenza B Negative (Negative); Ag, N Mening B/Ecoli K1 Negative (Negative); Ag, N Meningitidis ACY W135 Negative (Negative); Ag, Strep Pneumonia Negative (Negative)
[2025-03-13] MEDS: VASOPRESSIN IN NS IVPB 20 UNIT/100 ML BAG 9 UNIT IV (08:30)
[2025-03-13 08:48] LABS: Base Excess -3 (-3-3); HCO3 27 mEq/L (20-26); O2 Saturation 86 % (91-98); PCO2 85 mmHg (32.0-48.0); PO2 65 mmHg (83-108)
[2025-03-13 08:52] LABS: Inspired Oxygen, FIO2 100 %; pH, Arterial 7.12 (7.35-7.45)
[2025-03-13 08:53] LABS: Allen Test Performed/OK; Puncture Site Arterial Line
[2025-03-13] MEDS: PIPER/TAZO 3.375 GM PREMIX 3.375 GM/50 ML BAG IV (08:56)
[2025-03-13] MEDS: HEPARIN SOD INJ 5000 UNIT/ML VIAL SC (08:57)
[2025-03-13] MEDS: THIAMINE INJ 100 MG/ML VIAL 2 ML IVP (08:59)
[2025-03-13] MEDS: HYDROCORTISONE SOD SUCC INJ 100 MG 2 ML VIAL IV (09:00)
[2025-03-13] MEDS: SODIUM CHLORIDE 0.9% 1000 ML 2,000 ML 999 ML IV (10:00)
[2025-03-13] MEDS: WATER IV ×2 (10:20→10:25)
[2025-03-13] MEDS: DEXTROSE 5% IV (10:20)
[2025-03-13] MEDS: DEXTROSE IV (10:25)
[2025-03-13] MEDS: STERILE WATER IV (10:25)
[2025-03-13] MEDS: AMPHOTERICIN B LIPOSOME IV (10:25)
--- NOTE | 2025-03-13 10:32 | PC.SS ---
SS completed written SOC 341. Verbal report provided to APS staff, Corina Arenas. SS faxed written report to . Copy of SOC 341 placed in the patients medical chart.
--- NOTE | 2025-03-13 10:34 | PC.SS ---
Addendum entered by Esther Greene 03/13/25 10:40: SS follow up note; SS followed up with ECM [phone], as requested by APS staff. follow up conducted to initiate referral on behalf of the patient. No response SS left Voice Mail for ECM staff to return call. Original Note: SS to provide update on discharge disposition to APS as requested.
[2025-03-13] MEDS: Norepinephrine/D5W 8mg/250ml 8 MG/250 ML BAG 65.522 MG IV (10:53)
[2025-03-13] MEDS: VANCOMYCIN/NS 750 MG IVPB 750 MG/150 ML BAG 120 MG IV (10:56)
--- NOTE | 2025-03-13 10:56 | PC.CC ---
Addendum entered by Felicita Goldberg RN 03/13/25 14:35: 1425: Reached out to ICU Charge Hanane, to f/u on transfer status, she informed pt has . Transfer no longer needed. Called [facility], spoke to Esther and she stated they were already made aware by Dr. Castellon. 1426: Called [facility] to cancel transfer. Spoke to Peter and he stated they had declined the patient earlier today at 12:[address] Thomason. Addendum entered by Felicita Goldberg RN 03/13/25 14:32: 1350: spoke to Mana / [facility] per Dr. Pickard pt is not a candidate for ECMO. Per Mana, she is waiting for a call back from Dr. Castellon on how he wants to proceed. I called Dr. Castellon and was unable to contact. Addendum entered by Felicita Goldberg RN 03/13/25 12:24: 1220: all image uploads via [employer] completed. Sent the rest of the image reports to [facility]. 1154: Mana / [facility] called to request CT chest image. Resent image via Synapse. 1141: received call from [employer] / [facility], needs clarifcation on type of ECMO is needed. Called Dr. Castellon, he stated pt needs VV Venovenous ECMO. [facility] would go to the medicine team and [facility] would go to Cardiology. Original Note: 1043: sent clinicals to [facility], transfer request initated. Will upload images via [employer]via link when link is sent. 1041 spoke to [place] with [facility] - No ECMO services. 1040: Spoke to Summer at [facility] - no ECMO services 1035 sent clinicals to [facility] as requested by ICU MD. Initiated transfer request Jayne in TC. She stated she will review clinicals when received and call back with a redetermination. I was asked to reach out to other facilities as they are impacted. 1020 received call for transfer request for ECMO dx: susp dissemnitated cocci/severe ARDS. P/F ratio 65; OI 144.3. Cardiac tamponade, pending pericardiocenthesis.
[2025-03-13 10:58] LABS: Base Excess, Venous -6 (-3-3); O2 Saturation, Venous 80 % (96-97); PCO2, Venous 87 mmHg (36-56); PO2, Venous 57 mmHg (15-58); pH, Venous 7.07 (7.33-7.66)
[2025-03-13 11:00] LABS: Base Excess -4 (-3-3); HCO3 27 mEq/L (20-26); Inspired Oxygen, FIO2 100 %; O2 Saturation 88 % (91-98); PCO2 90 mmHg (32.0-48.0); PO2 69 mmHg (83-108)
[2025-03-13] MEDS: PHENYLEPHRINE HCL 40 MG in SODIUM CHLORIDE 0.9% 96 ML IV (11:08)
[2025-03-13 11:09] LABS: pH, Arterial 7.08 (7.35-7.45)
[2025-03-13 11:10] LABS: Allen Test Not Performed; Puncture Site Arterial Line
[2025-03-13] MEDS: SODIUM CHLORIDE 0.9% 1000 ML 1,000 ML 999 ML IV (11:15)
[2025-03-13] MEDS: MIDAZOLAM INJ 1 MG/ML VIAL 2 ML 5 MG IVP (12:02)
[2025-03-13] MEDS: THIAMINE INJ 100 MG/ML VIAL 2 ML 500 MG IV (12:03)
--- NOTE | 2025-03-13 13:41 | PD.IDPROG ---
Subjective Subjective Interval history: csf benign. 1 wbc 100% monos noted. glucose normal, protein normal. picture not c/w cocci and serum test neg. with no pre rx noted. Exam Vital Signs Temp Pulse Resp BP Pulse Ox O2 Del Method O2 Flow Rate 94.4 F L 124 H 20 94/49 L 86 L Mechanical Ventilation 15 03/13/25 07:46 03/13/25 11:08 03/13/25 07:46 03/13/25 11:08 03/13/25 09:05 03/13/25 07:46 03/13/25 04:00 FiO2 100 03/13/25 09:05 Objective - Internal Medicine Labs 03/13/25 04:19 03/13/25 04:19 Labs: Laboratory Results - last 24 hr 03/12/25 03/12/25 03/12/25 16:56 18:15 20:24 WBC RBC Hgb Hct MCV MCH MCHC RDW Std Deviation Plt Count Neut % (Auto) Lymph % (Auto) Calloway % (Auto) Eos % (Auto) Baso % (Auto) Neut # (Auto) Lymph # (Auto) Calloway # (Auto) Eos # (Auto) Baso # (Auto) Immature Gran # (Auto) Absolute Nucleated RBC Immature Gran % Nucleated RBC % Smear Path Review Puncture Site Right Radial ABG pH 7.25 L ABG pCO2 59 H ABG pO2 103 ABG HCO3 26 ABG O2 Saturation 97 ABG Base Excess -2 VBG pH VBG pCO2 VBG pO2 VBG O2 Sat (Lakshmi) VBG Base Excess FiO2 100 Sodium Potassium Chloride Carbon Dioxide Anion Gap BUN Creatinine Estim Creat Clear Calc eGFR BUN/Creatinine Ratio Glucose Estimated Ave Glu mg/dL Hemoglobin A1c Calculated Osmolality Calcium Corrected Calcium Phosphorus Magnesium Total Bilirubin AST ALT Alkaline Phosphatase Troponin I 0.238 H* Total Protein Albumin Globulin Albumin/Globulin Ratio Triglycerides Cholesterol LDL Cholesterol, Calc HDL Cholesterol Cholesterol/HDL Ratio CSF Appearance Clear CSF Color Colorless CSF WBC 1 CSF RBC 0 CSF Cell Count Tube # Tube # 4 CSF Mononuclear WBCs 100 CSF Polynuclear WBCs 0 CSF Glucose 50 CSF Total Protein 31 CSF H.influenzae B Ag Negative CSF N.meningit ACY/W135 Negative CSF N.mening B/E.coli K1 Negative CSF Strep B Antigen Negative CSF Strep pneumoniae Ag Negative 03/12/25 03/13/25 03/13/25 22:30 04:19 04:42 WBC 39.3 H* D RBC 3.70 L Hgb 9.2 L Hct 30.9 L MCV 84 MCH 24.9 L MCHC 29.8 L RDW Std Deviation 54.9 H Plt Count 257 D Neut % (Auto) 93 H Lymph % (Auto) 3 L Calloway % (Auto) 0 Eos % (Auto) 0 Baso % (Auto) 0 Neut # (Auto) 36.4 H Lymph # (Auto) 1.2 Calloway # (Auto) 0.1 Eos # (Auto) 0.0 Baso # (Auto) 0.0 Immature Gran # (Auto) 1.59 H Absolute Nucleated RBC 0.02 H Immature Gran % 4 H Nucleated RBC % 0 Smear Path Review Sent to Pathologist Puncture Site Right Radial ABG pH 7.07 L* D ABG pCO2 94 H* D ABG pO2 80 L D ABG HCO3 27 H ABG O2 Saturation 90 L ABG Base Excess -4 L VBG pH VBG pCO2 VBG pO2 VBG O2 Sat (Lakshmi) VBG Base Excess FiO2 100 Sodium 139 Potassium 3.8 Chloride 105 Carbon Dioxide 25.3 Anion Gap 9 BUN 18 Creatinine 0.8 Estim Creat Clear Calc 87.2 eGFR > 60 BUN/Creatinine Ratio 23 H Glucose 41 L* D Estimated Ave Glu mg/dL 94 Hemoglobin A1c 4.9 Calculated Osmolality 276 Calcium 9.5 Corrected Calcium 10.8 H Phosphorus 6.5 H Magnesium 1.8 Total Bilirubin 0.5 AST 192 H ALT 53 H Alkaline Phosphatase 151 H D Troponin I 0.245 H* Total Protein 5.6 L Albumin 2.4 L D Globulin 3.2 Albumin/Globulin Ratio 0.8 L Triglycerides 65 Cholesterol < 50 L LDL Cholesterol, Calc 32 HDL Cholesterol < 5 L Cholesterol/HDL Ratio 10.0 H CSF Appearance CSF Color CSF WBC CSF RBC CSF Cell Count Tube # CSF Mononuclear WBCs CSF Polynuclear WBCs CSF Glucose CSF Total Protein CSF H.influenzae B Ag CSF N.meningit ACY/W135 CSF N.mening B/E.coli K1 CSF Strep B Antigen CSF Strep pneumoniae Ag 03/13/25 03/13/25 08:38 10:30 WBC RBC Hgb Hct MCV MCH MCHC RDW Std Deviation Plt Count Neut % (Auto) Lymph % (Auto) Calloway % (Auto) Eos % (Auto) Baso % (Auto) Neut # (Auto) Lymph # (Auto) Calloway # (Auto) Eos # (Auto) Baso # (Auto) Immature Gran # (Auto) Absolute Nucleated RBC Immature Gran % Nucleated RBC % Smear Path Review Puncture Site Arterial Line Arterial Line ABG pH 7.12 L* 7.08 L* ABG pCO2 85 H* 90 H* ABG pO2 65 L 69 L ABG HCO3 27 H 27 H ABG O2 Saturation 86 L 88 L ABG Base Excess -3 -4 L VBG pH 7.07 L VBG pCO2 87 H VBG pO2 57 VBG O2 Sat (Lakshmi) 80 L VBG Base Excess -6 L FiO2 100 100 Sodium Potassium Chloride Carbon Dioxide Anion Gap BUN Creatinine Estim Creat Clear Calc eGFR BUN/Creatinine Ratio Glucose Estimated Ave Glu mg/dL Hemoglobin A1c Calculated Osmolality Calcium Corrected Calcium Phosphorus Magnesium Total Bilirubin AST ALT Alkaline Phosphatase Troponin I Total Protein Albumin Globulin Albumin/Globulin Ratio Triglycerides Cholesterol LDL Cholesterol, Calc HDL Cholesterol Cholesterol/HDL Ratio CSF Appearance CSF Color CSF WBC CSF RBC CSF Cell Count Tube # CSF Mononuclear WBCs CSF Polynuclear WBCs CSF Glucose CSF Total Protein CSF H.influenzae B Ag CSF N.meningit ACY/W135 CSF N.mening B/E.coli K1 CSF Strep B Antigen CSF Strep pneumoniae Ag ABG Interpretation ABG results: 03/12/25 03/13/25 03/13/25 20:24 04:42 08:38 ABG pH 7.25 L 7.07 L* D 7.12 L* ABG pCO2 59 H 94 H* D 85 H* ABG pO2 103 80 L D 65 L ABG HCO3 26 27 H 27 H ABG O2 Saturation 97 90 L 86 L ABG Base Excess -2 -4 L -3 VBG pH VBG pCO2 VBG pO2 VBG Base Excess 03/13/25 10:30 ABG pH 7.08 L* ABG pCO2 90 H* ABG pO2 69 L ABG HCO3 27 H ABG O2 Saturation 88 L ABG Base Excess -4 L VBG pH 7.07 L VBG pCO2 87 H VBG pO2 57 VBG Base Excess -6 L Assessment & Plan A&P Narrative dyspnea with neg cocci test locally and neg csf study. so far possible autism and medical avoidance noted. bc neg at 24h. will go with rocephin for now for pneumonia on cxr. wbc unusually high, would send for path eval of smear in am Time Spent With Patient Time: Total time spent is greater than 50% in coordination of care (as documented) at patient's floor/unit and/or counseling patient:
--- NOTE | 2025-03-13 13:42 | ESOP_ITS ---
Cardiac Cath Procedure Procedure Narrative Procedure date 03/13/2025 Title of the procedure Pericardiocentesis Indication for the procedure This is a 24-year-old gentleman with disseminated coccidial mycosis infection Patient has respiratory failure on ventilator intubated on a PEEP Patient is hypotensive in septic shock Patient was noted to have pericardial effusion moderate to large with right atrial collapse suggesting Cardiac tamponade In view of patient's significant hypotension and pericardial effusion we decided to proceed with Pericardiocentesis to improve blood pressure Procedure This was done in the [employer] [address] [employer] [facility] under continue electrocardiographic monitoring intermittent blood pressure monitoring Stringent aseptic condition 1% lidocaine anesthesia Subxiphoid area was prepared in the usual fashion and 1% lidocaine was infiltrated Subsequently echocardiographic examination of the cardiac structures was obtained And a suitable pocket for pericardiocentesis was determined Appropriate depth of the pericardial fluid was determined Subsequently pericardiocentesis needle was was gently advanced taking care each time to withdraw the trocar To make sure we in the pericardial space At this point as we enter the pericardial space patient became bradycardic and gradually developed asystole At this point we advanced a guidewire fluoroscopy was used to confirm the pericardial position of the guidewire The guidewire was exchanged for pericardial drainage catheter In spite of multiple attempts we were unable to drain any fluid at this point there was only a few cc of serosanguineous fluid drained out At this point patient became completely bradycardic We proceeded to do temporary pacemaker placement at this time patient is right femoral venous access obtained A temporary pacemaker was threaded under fluoroscopic guidance into the right ventricle Set rate was 100 maximum output was 20 In spite of that patient was unable to capture the ventricle At this point CPR was initiated already by the brand recorder ACLS BLS protocols were initiated by the brand recorder who was present throughout the procedure At this point the Paul machine was brought in and the CPR was continued and ACLS protocol was continued multiple rounds of epi and atropine was given bicarbonate was given Attempting for almost 40 minutes of CPR and ACLS protocols we were unable to achieve ROSC At this point an echocardiographic exam was done which shows persistence of pericardial fluid We attempted multiple times to drain the pericardial fluid each atrium was unsuccessful even though we were able to enter the pericardial space We were unable to drain any fluid out I discussion was made with the family and the family did not want to proceed any further CPR or ACLS protocols At this point the patient
--- NOTE | 2025-03-13 13:51 | ESCONSULT_ITS ---
HPI Data of Consult Requesting Physician: Bladimir Kim MD Primary Care Provider: Physician No Primary/Family Consult Narrative History of present illness: This is a 24-year-old male with no known past medical history Patient was seen in the emergency room with multiple episodes of near syncope Patient appears emaciated and cachectic with muscle wasting He was diagnosed as having septic shock and was admitted to the intensive care unit Labs significant for initial lactic acidosis of 8.6, white count was 24,000 Patient was subsequently diagnosed as having disseminated coccidiomycosis Patient continues to deteriorate requiring intubation and ventilation Subsequently he was also noted to have low blood pressure running Patient was started on multiple vasopressors IV fluids were given An echocardiographic examination done at the bedside revealed moderate large pericardial effusion with right atrial collapse Suggestive of cardiac tamponade Therefore cardiology consultation requested cc:: cc: Bladimir Kim MD Meds Home Medications and Allergies Home Medications ?Medication ?Instructions ?Recorded ?Confirmed ?Type No Known Home Medications 03/12/25 09/0 09/04 History Allergies Allergy/AdvReac Type Severity Reaction Status Date / Time No Known Allergies Allergy Verified 03/11/25 15:58 Exam Vital Signs Temp Pulse Resp BP Pulse Ox O2 Del Method O2 Flow Rate 94.4 F L 124 H 20 94/49 L 86 L Mechanical Ventilation 15 03/13/25 07:46 03/13/25 11:08 03/13/25 07:46 03/13/25 11:08 03/13/25 09:05 03/13/25 07:46 03/13/25 04:00 FiO2 100 03/13/25 09:05 Routine HEENT Exam Head: Present normocephalic and atraumatic Eye: Present EOMI and PERRL ENT: Present mucous membranes moist Routine Neck Exam Neck: Present supple and trachea midline Routine Respiratory Exam Respiratory: Present chest non-tender, lungs clear, normal breath sounds and no resp distress Routine Cardiovascular Exam Cardiovascular: Present RRR Routine Abdominal Exam Abdominal: Present soft and normoactive bowel sounds Routine Extremities Exam Extremities: Present full ROM Routine Skin Exam Skin: Present intact, dry and warm Routine Neurological Exam Neurological: Present alert, oriented X3 and CN II-XII intact Routine Psychiatric Exam Psychiatric: Present normal affect and normal thought process Results Labs 03/13/25 04:19 03/13/25 04:19 Labs: Short CBC 03/13/25 Range/Units 04:19 WBC 39.3 H* D (3.8-10.6) Thou/mm3 Hgb 9.2 L (13.5-16.0) g/dL Hct 30.9 L (41.0-53.0) % Plt Count 257 D (140-440) Thou/mm3 BMP 03/13/25 04:19 Sodium 139 Potassium 3.8 Chloride 105 Carbon Dioxide 25.3 BUN 18 Creatinine 0.8 Glucose 41 L* D Calcium 9.5 Cardiac Enzymes 03/12/25 03/12/25 Range/Units 16:56 22:30 Troponin I 0.238 H* 0.245 H* (0.0-0.045) ng/mL Liver Function 03/13/25 Range/Units 04:19 Total Bilirubin 0.5 (0.3-1.2) mg/dL AST 192 H (0-34) U/L ALT 53 H (10-49) U/L Alkaline Phosphatase 151 H D (46-116) U/L Albumin 2.4 L D (3.5-5.0) gm/dL ABG Interpretation ABG results: 03/12/25 03/13/25 03/13/25 20:24 04:42 08:38 ABG pH 7.25 L 7.07 L* D 7.12 L* ABG pCO2 59 H 94 H* D 85 H* ABG pO2 103 80 L D 65 L ABG HCO3 26 27 H 27 H ABG O2 Saturation 97 90 L 86 L ABG Base Excess -2 -4 L -3 VBG pH VBG pCO2 VBG pO2 VBG Base Excess 03/13/25 10:30 ABG pH 7.08 L* ABG pCO2 90 H* ABG pO2 69 L ABG HCO3 27 H ABG O2 Saturation 88 L ABG Base Excess -4 L VBG pH 7.07 L VBG pCO2 87 H VBG pO2 57 VBG Base Excess -6 L Assessment and Plan Assessment and plan (1) Disseminated coccidioidomycosis: Status: Acute (2) Septic shock: Status: Acute (3) Cardiac tamponade: Status: Acute (4) Infected dental caries: Status: Acute (5) Maxillary fracture: Status: Acute (6) Oropharyngeal mass: Status: Acute Additional Assessment & Plan Additional Plan: Patient's echocardiographic examination images were reviewed Patient appears to have large pericardial effusion with hypotension Right atrial collapse noted We will consider pericardiocentesis Care was discussed with the entry engineer PROCEDURES: Arterial Line Size (Gauge): 20
--- NOTE | 2025-03-13 13:56 | DES_ITS ---
<Statement entered by Morgan Castellon MD - 03/13/25 20:36> I was present at the time of . Condolences given to parents in recovery of label remover. Documentation for date of: 03/13/25 Pronouncement Note Date and Time of Date of : 03/13/25 Time of : 13:35 PCOD Preliminary cause of : Cardiopulmonary arrest Additional Data Confirmation of : no pulse, no respirations, no heart sounds and pupils fixed and dilated Family: contacted Additional persons at bedside: firestop/containment worker Attending/PCP notified?: Yes Attending physician: Bladimir Kim MD Was code activated?: Yes Autopsy requested?: No elevator examiner notified?: No Organ bank notified?: No Advance directives: No
--- NOTE | 2025-03-13 13:56 | PD.DPN ---
Documentation for date of: 03/13/25 Pronouncement Note Date and Time of Date of : 03/13/25 Time of : 13:35 PCOD Preliminary cause of : Cardiopulmonary arrest Additional Data Confirmation of : no pulse, no respirations, no heart sounds and pupils fixed and dilated Family: contacted Additional persons at bedside: social insurance analyst Attending/PCP notified?: Yes Attending physician: Bladimir Kim MD Was code activated?: Yes Autopsy requested?: No drapery examiner notified?: No Organ bank notified?: No Advance directives: No
--- NOTE | 2025-03-13 14:18 | ESPR_ITS ---
Addendum Progress Note Addendum Date of report being addended: 03/13/25 Narrative: prior hiv neg. prior procal noted . unusually high. wbc noted too. 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 lesions came and went with alcohol rx. family unable to bring him in. got ampho initially, imaging noted. cocci IgM neg. but lesions present for a year or more. prognosis seems to have been guarded regardless of dx. 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
--- NOTE | 2025-03-13 16:34 | PC.NURSE ---
Vital signs [facility] Pt was moved from room 257 to 256 at 0815 due to monitor malfunction. Primary RN and ekg tech at bedside monitoring patient, vital signs, and medications. Pt taken to cathlab at 1200, monitoring continued intraprocedure. Pt went into cardiac arrest and . Code blue form in chart.
--- NOTE | 2025-03-13 20:58 | DES_ITS ---
<Statement entered by Morgan Castellon MD - 03/13/25 22:26> Attending Attestation: Patient seen and examined with the above resident, Anthony Brito DO. I agree with the findings, assessment, and plan of care as documented except for any differences below. Patient with rapid decline overnight, contacted in early AM for imminent respiratory arrest. ABG at that time showed pH 7.07 despite Bipap support with adequate volumes. Oxygen best saturation in high 80s. Patient intubated with mild hemodynamic compromise. Vasopressor support utilized and able to stabilize the patient briefly, add on stress dose steroids as well. Patient sedated on Fentanyl alone after intubation. A subclavian CVC was promptly placed due to rising pressor requirements. No PPV was present. 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 Multiple skin lesions and bone involvement. DIRECTOR ELECTRICAL ENGINEERING fortunately was negative by LP. However orofacial and epiglottitis form direct infection likely. A skin biopsy of amenable lesions wa ssent for pathology. We only had a single dose of voriconazole available at our facility. ID consult was pending for the morning as well. Patient with sudden further drop in BP with narrow pulse pressure suggestive of cardiogenic or obstructive shock. Bedside Echo showed hyperdynamic RV/LV with moderate to large effusion with conc natalee for tamponade. Imaging sent to cardiology production dispatcher and in agreement. 2L large volume bolus given Addition of third pressors with vasopressin and phenylephrine started. Attempts made to minimize pressure son vent, trialled VC and PC with optimal settings found for lung protection with TV 350 and PEEP 10. FiO2 remained at 100%/ Patient with arterial line confirming low BP and after rapid infusion of bolus ( 2L on presssre bag) able to increase BP temporarily. Over course of 30 minutes started to have further decline. With re-establishment of CO, O2 saturation briefly increased. Compliance gradually worsened along with further decline in BP. Given PF ratio less than 100 and OI>40. We requested STAT transfer to facility with ECMO resources. In interim, patient to be transferred to cardiac catheterization lab urgently for pericardiocentesis when team is available. After resuscitation central saturation did increase to 80% and pH improved to 7.12 only with continued inability to adequately perform gas exchange. O2 saturation slowly drifting into low 80s. Ppeak climbed to high 30s. Family did arrive prior to transfer and updated on severity of illness with multiorgan failure. Poor prognosis without ability to do complete proning due to hemodynamic instability and very severely limited gas exchange. I spoke to family at length about poor outcome and they reported understanding of how delayed his presentation was due to his insistence of avoiding seeking care. Skin biopsy also sent and consent for bronchoscopy taken though limited ability to perform due to severe hypoxia/ hypercarbia. In this time, I was contacted by [facility]- declined for ECMO. [facility] in [place] similarly decline the patient given vasopressor requirements, disseminated disease, and poor prognosis due to multiorgan failure. Patient transferred to the odd job laborer, accompanied by ICU team due to severe instability.O2 saturation in low 80s/ high 70s. Narrow pulse pressure with MAP borderline 65. Pericardiocentesis drainage attempted but patient developed VT followed by bradycardia, despite epinephrine pushes as well as calcium and NaHCO3, and external pacing- patient with subsequent cardiac arrest. Patient underwent 26 minutes of CPR. Family was notified during resuscitative efforts. See code sheet for details. Drainage placement completed with inability to aspirate. No evidence of PTX and NaHCO3 and calcium given on multiple occasions without ROSC being achieved. Family at this point agreed to cessation of resuscitative efforts. I gave them my condolences and patient was pronounced at 1335. Patient post-demise was brought to PACU to allow parents to grieve. Total Critical Care Time: 240 minutes of time dedicated to frequent adjustments in vasopressors, fluids, ventilator, antibiotic selection, coord ination of care, directing resuscitative efforts at end of life, and counseling of patient's parents at the bedside. This is exclusive of time spent teaching housestaff or performing any separate billable procedures. Patient remained at significant risk of mortality at all times warranting close monitoring and care only available in the ICU. 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 Documentation for date of: 03/13/25 Summary Date and Time Date of admission: 03/12/25 11:59 Date of : 03/13/25 Time of : 13:35 Summary Details: Due to cardiac tamponade and obstructive shock, patient was taken to Cardiac [facility] for emergent pericardiocentesis. This was done in the [facility] under continue electrocardiographic monitoring intermittent blood pressure monitoring Stringent aseptic condition 1% lidocaine anesthesia Subxiphoid area was prepared in the usual fashion and 1% lidocaine was infiltrated Subsequently echocardiographic examination of the cardiac structures was obtained And a suitable pocket for pericardiocentesis was determined Appropriate depth of the pericardial fluid was determined Subsequently pericardiocentesis needle was was gently advanced taking care each time to withdraw the trocar To make sure we in the pericardial space At this point as we enter the pericardial space patient became bradycardic and gradually developed asystole At this point we advanced a guidewire fluoroscopy was used to confirm the pericardial position of the guidewire The guidewire was exchanged for pericardial drainage catheter In spite of multiple attempts we were unable to drain any fluid at this point there was only a few cc of serosanguineous fluid drained out At this point patient became completely bradycardic We proceeded to do temporary pacemaker placement at this time patient is right femoral venous access obtained A temporary pacemaker was threaded under fluoroscopic guidance into the right ventricle Set rate was 100 maximum output was 20 In spite of that patient was unable to capture the ventricle At this point CPR was initiated already by the district traffic chief ACLS BLS protocols were initiated by the district traffic chief who was present throughout the procedure At this point the Paul machine was brought in and the CPR was continued and ACLS protocol was continued multiple rounds of epi and atropine was given bicarbonate was given Attempting for almost 40 minutes of CPR and ACLS protocols we were unable to achieve ROSC At this point an echocardiographic exam was done which shows persistence of pericardial fluid We attempted multiple times to drain the pericardial fluid each atrium was unsuccessful even though we were able to enter the pericardial space We were unable to drain any fluid out I discussion was made with the family and the family did not want to proceed any further CPR or ACLS protocols At this point the patient Hospital Course: Mina Jimenez is a 24-year-old male with a PMH of anorexia, failure to thrive, and reported autism spectrum disorder who presents to the ICU with acute respiratory failure with hypoxia and hypercarbia requiring intubation for airway protection and ventilatory support. Initially, patient had been seen in the ED on 03/11/25 with his mother and father for a near?syncopal episode where patient was noted to be severely cachectic with facial/oral lesions as well as swelling and serosanguineous/sanguineous drainage from the right lower extremity and foot. Patient was then admitted to telemetry on 03/12 after he developed acute hypoxic respiratory failure and was revealed to have multiple embolic type acute infarcts scattered about bilaterally on brain MRI, cavitary lung opacities with miliary nodular pattern on chest CT, and hepatomegaly with fatty infiltration and ascites on CTAP. However, overnight, patient developed acute respiratory distress with tachypnea (respiratory rate 43/min) and hypoxemia (SPO2 89% on h igh flow oxygen). A BiPAP trial was initiated but not tolerated and repeat arterial blood gas showed worsening respiratory acidosis with a pH of 7.07, pCO2 94, and persistent hypoxemia. This led to intubation and ICU admission on 03/13. In the ICU, vitals showed: BP 105/54 HR 122 RR 24 Temp 101.9 SpO2 87% while intubated ICU Course: CBC showed WBC 39.3 with neutrophilic predominance and hemoglobin 9.2. ABG of the right radial artery showed pH 7.07, PCO2 94, PO2 80, HCO3 27, and O2 saturation 90. CMP showed glucose 41, hemoglobin A1c 4.9, corrected calcium 10.8, phosphorus 6.5, AST 192, ALT 53, alkaline phosphatase 151, troponin I 0.245, and albumin 2.4. CSF was clear and colorless with mononuclear WBCs 100, polynuclear WBCs 0, glucose 50, and total protein 31. UDS was positive for marijuana but otherwise negative. Imagin/1 chest x-ray showed severe bilateral pneumonia (with miliary active tuberculosis as a possible differential). 03/11 foot x-ray showed suspicious findings for early osteomyelitis involving the medial navicular and medial cuneiform. It also showed multiple soft tissue nodular densities primarily dorsal to the metatarsals and digits but also dorsal to the tarsal bones and about the calcaneus. 03/[address] showed chronic maxillary antral ethmoid sinus disease, mild erosion involving the anterior maxilla, suspicious findings for nondisplaced fractures of anterior and lateral right maxillary antrum, and incisor mandibular dental caries. 03/[address] showed subtle low-density areas in the anterior tongue and severe cavitary parenchymal disease throughout the visualized lungs. 03/11 CTAP showed severe miliary nodular pattern in the lung wright, hepatomegaly 19 cm with prominent fatty infiltration throughout the liver, ascites, cystitis pattern, and suspicious findings for small left perianal abscess. 03/[address] showed no acute cervical fracture. 03/[address] showed severe cavitary lung opacities with miliary nodular pattern. 03/[address] was negative for acute hemorrhage, mass effect, or midline shift. 03/12 brain MRI showed multiple embolic type acute infarcts in both cerebellar hemispheres, right occipital lobe, left basal ganglia including the caudate nucleus, and the right and left parietal lobes. 03/12 orbital MRI showed mild thickening of the epiglottis. 03/12 venous duplex ultrasound showed acute, non-occlusive, DVT in the right distal, popliteal, peroneal, and posterior tibial veins. 03/12 EKG showed sinus rhythm with short CT interval, marked right axis deviation, right bundle branch block, and normal QTc 418. 03/13 chest x-ray showed severe bilateral pneumonia, endotracheal tube tip 5.9 cm above kate, and right subclavian central line tip SVC. In the ICU, IV D50, IV D5 NS maintenance fluid, Zosyn, albumin, IV magnesium sulfate, IV thiamine, atorvastatin, p.o. voriconazole, Zofran, IV Levophed drip 0.05 mcg, IV ketamine, IV epinephrine, IV fentanyl, IV propofol, IV rocuronium, IV vasopressin 0.03, IV hydrocortisone, IV NS bolus, IV amphotericin B, IV vancomycin, IV midazolam, and IV phenylephrine. IV fluconazole was also ordered but had not been given. Despite all the above, patient continued to have respiratory failure and hypotension while intubated with ventilator support on PEEP and was noted to have pericardial effusion of moderate to large size with right atrial collapse suggesting cardiac tamponade. Due to the aforementioned situation, consent was obtained from patient's parents to proceed with pericardiocentesis to improve blood pressure and patient was sent to the [facility] with Cardiology consulted and following. Additional Data Confirmation of as documented by pronouncing clinician: no pulse, no respirations, no heart sounds and pupils fixed and dilated Family: at bedside and contacted Additional persons at bedside: other Attending/PCP notified?: Yes Attending physician: Morgan Castellon MD Was code activated?: Yes Autopsy requested?: No automobile insurance claim examiner notified?: No Organ bank notified?: No Advance directives: No Hospice patient?: No Visit Providers Provider Primary care physician: Physician No Primary/Family Consults: 03/12/25 12:16 Referral Speech Therapy Stat Comment: 03/12/25 12:17 Referral Wound Care Stat Comment: 03/12/25 13:49 Referral Registered Dietitian Stat Comment: malnourished, risk of re-feeding 03/12/25 15:57 Consult to Infectious Diseases Routine Comment: Consulting Provider: Maxwell Olivarez 03/12/25 20:57 [facility] Referral - Nutrition Routine Comment: Positive screening for nutrition needs. [facility] Referral - Transportation Routine Comment: Positive screening for transportation needs. [facility] Referral - Utilities Routine Comment: Positive screening for utility assistance needs. 03/13/25 09:05 Referral Pharmacy Stat Comment: IV voriconazole Reason for Consult: IV voriconazole 03/13/25 09:16 Consult to Cardiology Stat Comment: Tamponade Consulting Provider: Jacquie Manjarrez 03/13/25 10:10 Referral - Extended Insurance Clerk Stat Service Needed for Transfer: Critical Care Addl Comments:: suspected disseminated cocci/ARDS - severe. P/F ratio 65; OI 144.3. ECMO likely needed. Attempt [facility] first. Cardiac tamponade, pending pericardiocenthesis Diagnosis PCOD Cause of : Cardiopulmonary arrest Contributing Factors (1) Septic shock: (2) Cardiac tamponade: (3) Disseminated coccidioidomycosis: Discharge Plan Plan Patient Disposition: Prescriptions/Referrals Referrals: No Primary/Family,Physician [Primary Care Provider] - Patient/Caregiver Discharge Instructions Print Language: Japanese
[2025-03-14 11:43] LABS: Cocci Serology, IgG Positive (Negative)
[2025-03-14 11:43] LABS: Cocid Sro, CF/ID (UCD) NO CHG* See Sep Rpt
[2025-03-17 08:48] LABS: Enterovirus Source CSF; HSV-1 DNA, CSF NOT DETECTED copies/mL; HSV-1 DNA, CSF Source CEREBROSPINAL FLUID
[2025-03-17 17:48] LABS: (1-3)-B-D-glucan* >500 pg/mL; Index Value <0.50
[2025-03-18 09:00] LABS: Angiotensin Convert Enz, CSF* <5 U/L (< OR = 15)
[2025-03-18 09:08] LABS: VDRL, CSF Qual* NON-REACTIVE
[2025-03-18 09:10] LABS: Aspergillus Ag, Ser* NOT DETECTED; IgA, Serum* 473 mg/dL (47-310); IgE, Serum* 68 kU/L (114 OR LESS); IgG, Serum* 2811 mg/dL (600-1640); IgM, Serum* 68 mg/dL (50-300); Interpretation POSITIVE
[2025-03-18 09:10] LABS: Enterovirus RNA, PCR CSF NOT DETECTED; HSV-2 DNA, CSF NOT DETECTED copies/mL
[2025-03-25 06:30] LABS: Oligoclonal Bands, CSF* ABSENT (ABSENT)
== END 2025-03-13 16:49 | disposition expired | DRG 720 ==
LOC: SERX 03-12 09:45 → SERHOLD 03-12 12:24 → S2SX 03-12 15:18
PROVIDERS: Emergency Medicine; Internal Medicine; Psychiatry & Neurology Neurology; Student in an Organized Health Care Education/Training Program; Admitting Provider Student in an Organized Health Care Education/Training Program; Emergency Provider Emergency Medicine; Visit Provider Internal Medicine Critical Care Medicine
DX: A41.9 Sepsis, unspecified organism (principal); F12.90 Cannabis use, unspecified, uncomplicated; F17.210 Nicotine dependence, cigarettes, uncomplicated; R64 Cachexia; Z68.1 Body mass index [BMI] 19.9 or less, adult; K02.9 Dental caries, unspecified; K76.0 Fatty (change of) liver, not elsewhere classified; R16.0 Hepatomegaly, not elsewhere classified; R18.8 Other ascites; R62.7 Adult failure to thrive; J18.9 Pneumonia, unspecified organism; E83.52 Hypercalcemia; K61.0 Anal abscess; I63.89 Other cerebral infarction; G93.41 Metabolic encephalopathy; B38.7 Disseminated coccidioidomycosis; S02.40CA Maxillary fracture, right side, initial encounter for closed fracture; R22.1 Localized swelling, mass and lump, neck; F84.0 Autistic disorder; N30.90 Cystitis, unspecified without hematuria; R13.10 Dysphagia, unspecified; J05.10 Acute epiglottitis without obstruction; E43 Unspecified severe protein-calorie malnutrition; E87.29 Other acidosis; M86.8X7 Other osteomyelitis, ankle and foot; E84.9 Cystic fibrosis, unspecified; I46.8 Cardiac arrest due to other underlying condition; I31.39 Other pericardial effusion (noninflammatory); R40.2410 Glasgow coma scale score 13-15, unspecified time; R65.21 Severe sepsis with septic shock; R57.8 Other shock; I31.4 Cardiac tamponade; I45.10 Unspecified right bundle-branch block; I82.431 Acute embolism and thrombosis of right popliteal vein; I82.441 Acute embolism and thrombosis of right tibial vein; L98.429 Non-pressure chronic ulcer of back with unspecified severity
CPT/HCPCS: 36415; 36600; 70450; 70486; 70490; 70540; 70551; 71045; 71250; 72125; 73630; 74176; 80053; 80061; 80307; 80320; 81001; 81220; 82150; 82164; 82784; 82785; 82803; 82945; 83036; 83605; 83615; 83690; 83735; 83880; 83916; 84100; 84145; 84157; 84443; 84484; 85025; 85610; 85730; 86171; 86331; 86403; 86480; 86592; 86635; 86703; 86780; 87040; 87070; 87086; 87106; 87205; 87305; 87449; 87498; 87530; 87811; 89051; 92610; 93005; 93225; 93306; 93970; 94002; 94660; 96361; 96365; 96366; 96375; 99285; A4216; J0131; J0153; J0168; J0282; J0287; J0360; J0461; J1643; J1644; J1720; J2250; J2312; J2371; J2405; J2543; J2598; J2704; J3010; J3370; J3373; J3411; J3475; J3490; J7030; J7042; J7050; P9047; A9270; G0480